=== PATIENT | male | born 1935 | race Caucasian/White ===

== ENCOUNTER → 2017-10-14 09:23 | Outpatient (CLI) | payer OTHER, MEDICARE, SELFPAY ==
[2017-10-14 11:03] LABS: Absolute Lymphocyte Count 1.38 X10^3/ul (0.83-4.51); Absolute Neutrophil Count 3.2 X10^3/uL (2.0-7.7); Basophil# 0.02 X10^3/uL; Basophil% 0.4 % (0-1); Eosinophil# 0.11 X10^3/uL; Hemoglobin 16.1 g/dl (13.0-16.5); Lymphocyte # 1.38 X10^3/ul (4.0); Lymphocyte % 25.7 % (19-41); Mean Corp Hgb Conc 32.2 g/gl (32-36); Mean Corpuscular Hgb 31.1 pg (27.0-32.0); Mean Corpuscular Volume 96.7 fL (80-94); Mean Platelet Vol. 10.6 fl (6.2-12.0); Monocyte# 0.62 X10^3/uL; Monocyte% 11.5 % (0-10); Neutrophil # 3.21 X10^3/uL (2.7-7.7); Neutrophil % 59.8 % (47-70); Platelet Count 190 K/mm3 (150-450); RBC Distribution Width CV 12.9 % (11.6-14.6); RBC Distribution Width SD 46.2 fl (35.1-43.9); Red Blood Count 5.17 M/mm3 (4.6-6.2); White Blood Count 5.4 K/mm3 (4.4-11.0)
[2017-10-14 11:08] LABS: POSITIVE COUNT NO; POSITIVE DIFFERENTIAL NO; POSITIVE MORPHOLOGY NO
[2017-10-14 11:44] LABS: AST(SGOT) 19 U/L (15-37); Alanine Aminotransfer ALT/SGPT 22 U/L (16-61); Albumin, Serum 3.5 g/dL (3.2-5.0); Alkaline Phosphatase 107 U/L (45-117); Anion Gap 8 (5-15); BUN 18 mg/dL (7-18); BUN/Creat Ratio 12.9 RATIO (10-20); Calcium,Total 8.3 mg/dL (8.5-10.1); Chloride 109 mmol/L (98-107); EST Glomerular Filtration Rate 52 mL/min (>60); Est Glom Filt Rate - Afr Amer 63 mL/min (>60); Globulin 3.6 g/dL (2.2-4.2); Glucose 109 mg/dL (74-106); Potassium 4.3 mmol/L (3.5-5.1); Protein, Total 7.1 g/dL (6.4-8.2); Sodium Level 140 mmol/L (136-145); Thyroid Stim Hormone (TSH) 2.44 uIU/mL (0.358-3.74)
== END ==
PROVIDERS: Family Provider Family Medicine Geriatric Medicine; PCP Family Medicine Geriatric Medicine; Visit Provider Family Medicine Geriatric Medicine
DX: R53.83 Other fatigue (principal); E55.9 Vitamin D deficiency, unspecified
CPT/HCPCS: 36415; 80053; 82306; 84443; 85025

== ENCOUNTER → 2017-10-15 16:15 | Outpatient (CLI) | payer OTHER, MEDICARE, SELFPAY ==
--- NOTE | 2017-10-15 10:22 | TISS_PTH ---
PATIENT: NOAH TERRY LOC: [facility] U#:[id number] AGE/SX: 89/M ROOM: RE10/15/[address]: Dr. Jame Hebert MD : 1935 BED: DIS: SPEC #: [id number] RECD: 10/15/17 18:26 STATUS: PHILLIP YASEMIN #: [id number] ARACELI: 10/15/17 10:[address]: Jame Hebert Chi DEPT: SURGICAL PATHOLOGY RECD BY: Danni Hahn Tissues: Skin of face, NOS Procedures: Special Stain Group I Surgery Specimen Level IV GMS Stain (control) HEADER OPERATION: Not noted PRE-OP DIAGNOSIS: L98.9 TISSUE SUBMITTED: Left cheek MICROSCOPIC DIAGNOSIS Left cheek lesion, excisional biopsy: Basal cell carcinoma, completely excised in the planes of sections examined. Solar elastosis. Special stain for fungi is negative for organisms; matched control is appropriate. SJ:jarad 10/17/17 MICROSCOPIC DESCRIPTION Slides are reviewed. GROSS DESCRIPTION Received is one container labeled with the patient's name and not further designated. The specimen consists of a light michaels shaved skin fragment measuring 1.3 x 1 x 0.3 cm. The specimen is inked, serially sectioned and totally submitted in one cassette. / AM:jarad 10/16/17 TC:0 CPT: 82507, 15848
== END ==
PROVIDERS: Family Provider Family Medicine Geriatric Medicine; PCP Family Medicine Geriatric Medicine; Visit Provider Family Medicine Geriatric Medicine
DX: L98.9 Disorder of the skin and subcutaneous tissue, unspecified (principal)
CPT/HCPCS: 88305; 88312

== ENCOUNTER → 2018-04-16 10:25 | Outpatient (CLI) | payer MEDICARE, OTHER, SELFPAY ==
[2018-04-16 13:12] LABS: Absolute Lymphocyte Count 1.34 X10^3/ul (0.83-4.51); Absolute Neutrophil Count 3.6 X10^3/uL (2.0-7.7); Basophil# 0.03 X10^3/uL; Basophil% 0.5 % (0-1); Eosinophil# 0.14 X10^3/uL; Eosinophils% 2.5 % (0-5); Hematocrit 49.9 % (40-54); Lymphocyte # 1.34 X10^3/ul (4.0); Lymphocyte % 23.8 % (19-41); Mean Corp Hgb Conc 32.1 g/gl (32-36); Mean Corpuscular Volume 96.7 fL (80-94); Mean Platelet Vol. 10.4 fl (6.2-12.0); Monocyte% 8.9 % (0-10); Neutrophil # 3.59 X10^3/uL (2.7-7.7); Neutrophil % 63.6 % (47-70); Platelet Count 208 K/mm3 (150-450); RBC Distribution Width CV 13.5 % (11.6-14.6); RBC Distribution Width SD 48.2 fl (35.1-43.9); Red Blood Count 5.16 M/mm3 (4.6-6.2); White Blood Count 5.6 K/mm3 (4.4-11.0)
[2018-04-16 13:14] LABS: Vitamin D,25 Hydroxy 17.6 ng/mL (29.95-100.01)
[2018-04-16 13:22] LABS: ALB/GLOB Ratio 0.9 RATIO (0.9-2.4); AST(SGOT) 19 U/L (15-37); Alanine Aminotransfer ALT/SGPT 27 U/L (16-61); Albumin, Serum 3.5 g/dL (3.2-5.0); Alkaline Phosphatase 82 U/L (45-117); Anion Gap 11 (5-15); BUN 20 mg/dL (7-18); BUN/Creat Ratio 12.3 RATIO (10-20); Calcium,Total 8.8 mg/dL (8.5-10.1); Chloride 106 mmol/L (98-107); Creatinine, Serum 1.62 mg/dL (0.70-1.30); EST Glomerular Filtration Rate 44 mL/min (>60); Est Glom Filt Rate - Afr Amer 53 mL/min (>60); Globulin 3.9 g/dL (2.2-4.2); Glucose 146 mg/dL (74-106); Potassium 4.1 mmol/L (3.5-5.1); Protein, Total 7.4 g/dL (6.4-8.2); Sodium Level 139 mmol/L (136-145); Thyroid Stim Hormone (TSH) 2.31 uIU/mL (0.358-3.74)
[2018-04-16 13:27] LABS: POSITIVE COUNT NO; POSITIVE DIFFERENTIAL NO; POSITIVE MORPHOLOGY NO
== END ==
PROVIDERS: Family Provider Family Medicine Geriatric Medicine; PCP Family Medicine Geriatric Medicine; Visit Provider Family Medicine Geriatric Medicine
DX: E55.9 Vitamin D deficiency, unspecified (principal); R53.83 Other fatigue
CPT/HCPCS: 36415; 80053; 82306; 84443; 85025

== ENCOUNTER → 2018-07-25 08:46 | Outpatient (CLI) | payer MEDICARE, OTHER, SELFPAY ==
[2018-07-15 10:10] VITALS: BMI 29.5
--- NOTE | 2018-07-25 08:51 | ECHOD_ITS ---
Reason For Study: Arrhythmia Procedure This was a 2D Doppler, Color Flow transthoracic echocardiogram. Exam performed in department. Left Ventricle Normal LV size. Left ventricular systolic function is normal. The estimated ejection fraction is 65 %. Stage 1 diastolic dysfunction. No regional wall motion abnormalities noted. Right Ventricle Normal RV size. Normal systolic function. Atria Normal left atrium. Normal right atrium. Mitral Valve Normal mitral valve. Tricuspid Valve Normal tricuspid valve. Aortic Valve Trisinus/trileaflet aortic valve. Mild diffuse aortic valve thickening. Mild aortic stenosis. Mild (1+) eccentric aortic valve insufficiency. Pulmonic Valve Normal pulmonic valve. Great Vessels Moderately dilated ascending aorta. The pulmonary artery is normal size. Normal inferior vena cava. Pericardium/Pleural No pericardial effusion. MMode/2D Measurements & Calculations LVIDd: 3.8 cm IVSd: 1.5 cm LVOT diam: 2.0 cm LVIDs: 2.7 cm LVPWd: 1.2 cm LVOT area: 3.2 cm2 RVDd: 3.3 cm FS: 29.2 % Ao root diam: 4.7 cm LAV(MOD-bp): 38.5 ml LVAd ap4: 24.8 cm2 LAV(MOD-bp) Indexed: 18.9 ml/m2 EDV(MOD-sp4): 66.9 ml LAV(MOD-sp2): 37.4 ml EDV(sp4-el): 68.4 ml LAV(MOD-sp4): 39.8 ml LVAs ap4: 14.2 cm2 ESV(MOD-sp4): 28.2 ml ESV(sp4-el): 27.8 ml EF(MOD-sp4): 57.9 % EF(sp4-el): 59.4 % SV(MOD-sp4): 38.7 ml SV(sp4-el): 40.7 ml LA A4 area: 16.9 cm2 LA dimension(2D): 3.6 cm RA A4 area: 12.6 cm2 Doppler Measurements & Calculations MV E max justen: 66.4 cm/sec Lat Peak E' Justen: 7.2 cm/sec Med Peak E' Justen: 4.2 cm/sec MV A max justen: 98.9 cm/sec E/E' lat: 9.2 E/E' med: 15.8 MV E/A: 0.67 Ao V2 max: 229.0 cm/sec AI max justen: 491.1 cm/sec LV V1 max: 117.0 cm/sec Ao max P.0 mmHg AI max P.5 mmHg LV V1 max P.5 mmHg Ao V2 mean: 157.9 cm/sec LV V1 mean P.2 mmHg Ao mean P.2 mmHg AI dec slope: 255.3 cm/sec2 LV V1 mean: 85.8 cm/sec Ao V2 VTI: 43.9 cm AI P1/2t: 563.4 msec LV V1 VTI: 21.7 cm KATIUSKA(I,D): 1.6 cm2 KATIUSKA(V,D): 1.6 cm2 SV(LVOT): 68.9 ml PA V2 max: 104.2 cm/sec Interpretation Summary Normal LV size. Left ventricular systolic function is normal. The estimated ejection fraction is 65 %. Stage 1 diastolic dysfunction. Moderately dilated ascending aorta. Mild aortic stenosis. Ordering Physician: Juan Carlos Duval Referring Physician: Jame Hebert Chi Performed By: Marjorie Choudhary, ELYSSA, RVT
== END ==
PROVIDERS: Family Provider Family Medicine Geriatric Medicine; PCP Family Medicine Geriatric Medicine; Referring Provider Internal Medicine Cardiovascular Disease; Visit Provider Internal Medicine Cardiovascular Disease
DX: I47.1 Supraventricular tachycardia (principal)
CPT/HCPCS: 93306

== ENCOUNTER → 2018-08-15 08:03 | Outpatient (CLI) | payer MEDICARE, OTHER, SELFPAY ==
[2018-07-15 10:10] VITALS: BMI 29.5
--- NOTE | 2018-08-15 08:06 | CT_ITS ---
STUDY: CT CHEST WITH CONTRAST REASON FOR EXAM: Male, 83 years old. Dilated ascending thoracic aorta RADIATION DOSAGE (If Supplied By Facility): CTDIvol = ( 14.95 ) mGy, DLP = ( 649.71 ) mGycm TECHNIQUE: Transaxial imaging was performed following intravenous administration of 75ML ml of Isovue 300 contrast material. Individualized dose optimization techniques were used for this CT. COMPARISON: None. FINDINGS: Scattered subpleural reticulation and bilateral lower lobes and in the right upper lobe. No airspace consolidation. Reticulonodular opacity along the fissure (image 52) is felt to be fibrotic in nature. No suspicious pulmonary nodules. There is no demonstrated pleural abnormality. Normal heart and pericardium. There are calcifications of the coronary arteries. There are multiple small lymph nodes within the mediastinum, which are normal in size and morphology most compatible with reactive lymph hyperplasia. Normal hilar regions. Normal enhanced pulmonary arteries. Aneurysmal dilation of the ascending thoracic aorta measures 4.7 x 4.7 cm at the level of the pulmonary artery. No thoracic aortic dissection or periaortic fluid. Tortuosity of the origins of the brachiocephalic arteries but no significant stenosis detected. There is also tortuosity of the descending thoracic aorta remains normal in caliber. There are multi-level degenerative changes of the thoracic spine. There is a moderate-sized hiatal hernia. Simple right renal cyst measures 2.[address]/Chest WITH Contrast IMPRESSION: 1. Ascending thoracic aortic aneurysm measuring 4.7 cm. No thoracic aortic dissection. 2. Mild fibrotic changes of the lungs. Electronically Signed: Reji Stark MD at 7:12 EST , Service support ,
[2018-08-15 08:16] LABS: CREATININE FINGERSTICK 1.8 mg/dL (0.70-1.30)
== END ==
PROVIDERS: Family Provider Family Medicine Geriatric Medicine; PCP Family Medicine Geriatric Medicine; Referring Provider Internal Medicine Cardiovascular Disease; Visit Provider Internal Medicine Cardiovascular Disease
DX: I77.810 Thoracic aortic ectasia (principal); I47.1 Supraventricular tachycardia
CPT/HCPCS: 71260; Q9967

== ENCOUNTER → 2018-10-15 13:16 | Outpatient (CLI) | payer MEDICARE, OTHER, SELFPAY ==
[2018-07-15 10:10] VITALS: BMI 29.5
[2018-10-15 15:04] LABS: Absolute Lymphocyte Count 1.28 X10^3/ul (0.83-4.51); Absolute Neutrophil Count 3.6 X10^3/uL (2.0-7.7); Basophil# 0.03 X10^3/uL; Basophil% 0.6 % (0-1); Eosinophil# 0.09 X10^3/uL; Eosinophils% 1.7 % (0-5); Hematocrit 53.2 % (40-54); Hemoglobin 16.7 g/dl (13.0-16.5); Lymphocyte # 1.28 X10^3/ul (4.0); Lymphocyte % 23.6 % (19-41); Mean Corp Hgb Conc 31.4 g/gl (32-36); Mean Corpuscular Hgb 30.7 pg (27.0-32.0); Mean Corpuscular Volume 97.8 fL (80-94); Monocyte# 0.43 X10^3/uL; Monocyte% 7.9 % (0-10); Neutrophil # 3.57 X10^3/uL (2.7-7.7); Neutrophil % 65.6 % (47-70); Platelet Count 193 K/mm3 (150-450); RBC Distribution Width CV 13.5 % (11.6-14.6); RBC Distribution Width SD 48.7 fl (35.1-43.9); Red Blood Count 5.44 M/mm3 (4.6-6.2); White Blood Count 5.4 K/mm3 (4.4-11.0)
[2018-10-15 15:12] LABS: POSITIVE COUNT NO; POSITIVE DIFFERENTIAL NO; POSITIVE MORPHOLOGY NO
[2018-10-15 15:17] LABS: Vitamin D,25 Hydroxy 50.9 ng/mL (29.95-100.01)
[2018-10-15 15:21] LABS: ALB/GLOB Ratio 0.9 RATIO (0.9-2.4); AST(SGOT) 20 U/L (15-37); Alanine Aminotransfer ALT/SGPT 26 U/L (16-61); Albumin, Serum 3.7 g/dL (3.2-5.0); Alkaline Phosphatase 88 U/L (45-117); Anion Gap 10 (5-15); BUN 21 mg/dL (7-18); BUN/Creat Ratio 14.7 RATIO (10-20); Calcium,Total 8.6 mg/dL (8.5-10.1); Chloride 108 mmol/L (98-107); Creatinine, Serum 1.43 mg/dL (0.70-1.30); EST Glomerular Filtration Rate 50 mL/min (>60); Est Glom Filt Rate - Afr Amer 61 mL/min (>60); Globulin 3.9 g/dL (2.2-4.2); Glucose 142 mg/dL (74-106); Potassium 4.5 mmol/L (3.5-5.1); Protein, Total 7.6 g/dL (6.4-8.2); Sodium Level 140 mmol/L (136-145)
== END ==
PROVIDERS: Family Provider Family Medicine Geriatric Medicine; PCP Family Medicine Geriatric Medicine; Visit Provider Family Medicine Geriatric Medicine
DX: E55.9 Vitamin D deficiency, unspecified (principal); R53.83 Other fatigue
CPT/HCPCS: 36415; 80053; 82306; 84443; 85025

== ENCOUNTER → 2019-02-23 | Outpatient (CLI) | payer MEDICARE, OTHER, SELFPAY ==
[2018-07-15 10:10] VITALS: BMI 29.5
--- NOTE | 2019-02-23 12:50 | CT_ITS ---
STUDY: CT CHEST WITH CONTRAST REASON FOR EXAM: Male, 83 years old. Follow-up study RADIATION DOSAGE (If Supplied By Facility): CTDIvol = ( 11.53 ) mGy, DLP = ( 773.73 ) mGycm TECHNIQUE: Transaxial imaging was performed following intravenous administration of 100 IV Isovue 300. Multiplanar coronal and sagittal images were reformatted. Individualized dose optimization techniques were used for this CT. COMPARISON: August 15, 2018 CT scan chest FINDINGS: There is scarring in the bilateral lung apices. There is increased AP diameter of the chest. There is no visualized focal consolidation or pleural effusion. There is no demonstrated pleural abnormality. There is mild cardiac enlargement there are coronary artery calcifications. There are numerous borderline pathologic lymph nodes demonstrated within the mediastinum measuring up to 1.1 and 1.4 cm. There is partial calcification of one of the lymph nodes. There are lymph nodes in the prevascular space precarinal space and in the bilateral barry. Normal enhanced pulmonary arteries. The aorta is tortuous and partially calcified. The ascending thoracic aorta measures 4.9 x 4.6 cm there is no evidence of dissection. It tapers towards the mid arch. The descending thoracic aorta measures 3.0 x 3.2 cm. At the hiatus it measures 2.7 cm. There are multi-level degenerative changes of the thoracic spine. There is a hiatal hernia measuring 8.9 x 6.7 x 9.7 cm. The liver is fatty infiltrated. There is a well-circumscribed benign-appearing cyst in the right kidney measuring 2.5 x 2.6 cm with Hounsfield units in the range of simple fluid. There is a mildly inhomogeneous appearance of the tail and body of the pancreas. The tail and body of the pancreas appears thicker than prior study. In addition there is a rim of possible edema. CT/Chest WITH Contrast IMPRESSION: 4.9 x 4.6 cm stable thoracic aortic aneurysm. Multiple age indeterminant borderline appearing lymph nodes in the mediastinum consider reactive versus metastatic versus possible but less likely sarcoid. Moderate hiatal hernia There is a mildly inhomogeneous possibly edematous appearance of the tail and body of the pancreas which could potentially represent pancreatic edema consistent with pancreatitis. Appropriate follow-up imaging and laboratory values is suggested. These findings were called to the ordering physician on a stat basis Dr. Duval 639 pm est 02/23/19 . Benign-appearing right renal cyst Constipation. Bilateral apical scarring. N.B. : The above information has been verbally conveyed by Radha Ann MD to Roberts MD, on 02/23/2019 18:40:44 (ET). Electronically Signed: Radha Ann MD at 18:41 EDT Tel , Service support ,
[2019-02-23 13:05] LABS: CREATININE FINGERSTICK 1.4 mg/dL (0.70-1.30)
== END | disposition home or self-care (01) ==
LOC: CT 12:49
PROVIDERS: Family Provider Family Medicine Geriatric Medicine; PCP Family Medicine Geriatric Medicine; Referring Provider Internal Medicine Cardiovascular Disease; Visit Provider Internal Medicine Cardiovascular Disease
DX: I71.2 Thoracic aortic aneurysm, without rupture (principal); I47.1 Supraventricular tachycardia
CPT/HCPCS: 71260; Q9967

== ENCOUNTER → 2019-02-26 | Outpatient (CLI) | payer MEDICARE, OTHER, SELFPAY ==
[2018-07-15 10:10] VITALS: BMI 29.5
[2019-02-26 10:25] LABS: AST(SGOT) 18 U/L (15-37); Alanine Aminotransfer ALT/SGPT 22 U/L (16-61); Albumin, Serum 3.3 g/dL (3.2-5.0); Alkaline Phosphatase 91 U/L (45-117); Amylase 73 U/L (25-115); Bilirubin, Direct 0.18 mg/dL (0.00-0.30); Globulin 4.2 g/dL (2.2-4.2); Lipase 413 U/L (73-393); Protein, Total 7.5 g/dL (6.4-8.2)
== END | disposition home or self-care (01) ==
LOC: LAB 08:35
PROVIDERS: Family Provider Family Medicine Geriatric Medicine; PCP Family Medicine Geriatric Medicine; Referring Provider Internal Medicine Cardiovascular Disease; Visit Provider Internal Medicine Cardiovascular Disease
DX: I71.2 Thoracic aortic aneurysm, without rupture (principal); I47.1 Supraventricular tachycardia
CPT/HCPCS: 36415; 80076; 82150; 83690

== ENCOUNTER → 2019-04-27 09:10 | Outpatient (CLI) | payer MEDICARE, OTHER, SELFPAY ==
[2018-07-15 10:10] VITALS: BMI 29.5
[2019-04-27 12:31] LABS: Absolute Lymphocyte Count 1.24 X10^3/uL (0.83-4.51); Absolute Neutrophil Count 3.4 X10^3/uL (2.0-7.7); Basophil# 0.03 X10^3/uL; Basophil% 0.6 % (0-1); Eosinophil# 0.07 X10^3/uL; Eosinophils% 1.4 % (0-5); Hematocrit 49.4 % (40-54); Hemoglobin 16.4 g/dL (13.0-16.5); Lymphocyte # 1.24 X10^3/ul (4.0); Mean Corp Hgb Conc 33.2 g/dL (32-36); Mean Corpuscular Hgb 32.4 pg (27.0-32.0); Mean Corpuscular Volume 97.6 fL (80-94); Mean Platelet Vol. 10.6 fl (6.2-12.0); Monocyte# 0.37 X10^3/uL; Monocyte% 7.2 % (0-10); NRBC Flagged by Analyzer 0 % (0-5); Neutrophil % 65.8 % (47-70); Platelet Count 150 K/mm3 (150-450); RBC Distribution Width CV 12.6 % (11.6-14.6); RBC Distribution Width SD 45.4 fl (35.1-43.9); Red Blood Count 5.06 M/mm3 (4.6-6.2); White Blood Count 5.2 K/mm3 (4.4-11.0)
[2019-04-27 12:47] LABS: Vitamin D,25 Hydroxy 35.3 ng/mL (29.95-100.01)
[2019-04-27 12:58] LABS: ALB/GLOB Ratio 0.8 RATIO (0.9-2.4); AST(SGOT) 19 U/L (15-37); Alanine Aminotransfer ALT/SGPT 25 U/L (16-61); Albumin, Serum 3.3 g/dL (3.2-5.0); Alkaline Phosphatase 81 U/L (45-117); Anion Gap 9 (5-15); BUN 18 mg/dL (7-18); BUN/Creat Ratio 13.1 RATIO (10-20); Calcium,Total 8.4 mg/dL (8.5-10.1); Chloride 110 mmol/L (98-107); Creatinine, Serum 1.37 mg/dL (0.70-1.30); EST Glomerular Filtration Rate 53 mL/min (>60); Est Glom Filt Rate - Afr Amer 64 mL/min (>60); Globulin 4.1 g/dL (2.2-4.2); Glucose 167 mg/dL (74-106); Potassium 4.2 mmol/L (3.5-5.1); Protein, Total 7.4 g/dL (6.4-8.2); Sodium Level 141 mmol/L (136-145); Thyroid Stim Hormone (TSH) 3.41 uIU/mL (0.358-3.74)
== END ==
PROVIDERS: Family Provider Family Medicine Geriatric Medicine; PCP Family Medicine Geriatric Medicine; Visit Provider Family Medicine Geriatric Medicine
DX: E55.9 Vitamin D deficiency, unspecified (principal); R53.83 Other fatigue
CPT/HCPCS: 36415; 80053; 82306; 84443; 85025

== ENCOUNTER → 2019-10-19 10:19 | Outpatient (CLI) | payer MEDICARE, OTHER, SELFPAY ==
[2019-07-21 07:15] VITALS: BMI 28.5
[2019-10-19 12:21] LABS: Absolute Lymphocyte Count 1.27 X10^3/uL (0.83-4.51); Absolute Neutrophil Count 3.3 X10^3/uL (2.0-7.7); Basophil# 0.04 X10^3/uL; Basophil% 0.8 % (0-1); Eosinophils% 1.9 % (0-5); Hematocrit 49.5 % (40-54); Hemoglobin 16.2 g/dL (13.0-16.5); Lymphocyte # 1.27 X10^3/ul (4.0); Lymphocyte % 24.1 % (19-41); Mean Corp Hgb Conc 32.7 g/dL (32-36); Mean Corpuscular Hgb 31.7 pg (27.0-32.0); Mean Corpuscular Volume 96.9 fL (80-94); Mean Platelet Vol. 10.8 fl (6.2-12.0); Monocyte# 0.52 X10^3/uL; Monocyte% 9.9 % (0-10); NRBC Flagged by Analyzer 0 % (0-5); Neutrophil % 62.7 % (47-70); Platelet Count 190 K/mm3 (150-450); RBC Distribution Width CV 12.4 % (11.6-14.6); RBC Distribution Width SD 44.7 fl (35.1-43.9); Red Blood Count 5.11 M/mm3 (4.6-6.2); White Blood Count 5.3 K/mm3 (4.4-11.0)
[2019-10-19 12:36] LABS: Vitamin D,25 Hydroxy 39.8 ng/mL
[2019-10-19 12:41] LABS: ALB/GLOB Ratio 0.9 RATIO (0.9-2.4); AST(SGOT) 22 U/L (15-37); Alanine Aminotransfer ALT/SGPT 27 U/L (16-61); Albumin, Serum 3.7 g/dL (3.2-5.0); Alkaline Phosphatase 88 U/L (45-117); Anion Gap 7 (5-15); BUN 21 mg/dL (7-18); Calcium,Total 8.8 mg/dL (8.5-10.1); Chloride 106 mmol/L (98-107); EST Glomerular Filtration Rate 48 mL/min (>60); Est Glom Filt Rate - Afr Amer 58 mL/min (>60); Globulin 4.1 g/dL (2.2-4.2); Glucose 159 mg/dL (74-106); Potassium 4.2 mmol/L (3.5-5.1); Protein, Total 7.8 g/dL (6.4-8.2); Sodium Level 138 mmol/L (136-145); Thyroid Stim Hormone (TSH) 3.58 uIU/mL (0.358-3.74)
== END ==
PROVIDERS: PCP Family Medicine Geriatric Medicine; Visit Provider Family Medicine Geriatric Medicine
DX: R53.83 Other fatigue (principal); E55.9 Vitamin D deficiency, unspecified
CPT/HCPCS: 36415; 80053; 82306; 84443; 85025

== ENCOUNTER → 2020-03-28 13:03 | Outpatient (CLI) | payer MEDICARE, OTHER, SELFPAY ==
[2019-07-21 07:15] VITALS: BMI 28.5
--- NOTE | 2020-03-28 13:08 | VDLE_ITS ---
Reason For Study: Edema RIGHT GSV is normal. CFV is compressible, spontaneous, phasic, competent and demonstrates normal augmentation. FV is compressible, spontaneous, phasic, competent and demonstrates normal augmentation. POP V is compressible, spontaneous, phasic, competent and demonstrates normal augmentation. T/P Trunk is compressible. PTV is compressible. RT PerV is compressible. Large nonvascularized structure noted throughout the calf muscle from prox-mid calf. Procedure Exam performed in department. A preliminary report was called and/or faxed to Anup. Interpretation Summary Deep veins of the right lower extremity are patent and compressible segmentally. There is no evidence of right lower extremity deep vein thrombosis. Valvular competence appears intact within the proximal deep venous system on the right . The right great saphenous vein appears patent and compressible segmentally. A large, non-vascular structure is noted throughout the musculature of the right proximal to mid-calf. This may represent a hematoma or seroma. Clinical correlation is advised. Ordering Physician: Jame Hebert Referring Physician: Jame Hebert Chi Performed By: Maribel Warren RVT and Student
== END ==
PROVIDERS: PCP Family Medicine Geriatric Medicine; Referring Provider Family Medicine Geriatric Medicine; Visit Provider Family Medicine Geriatric Medicine
DX: R60.0 Localized edema (principal)
CPT/HCPCS: 93971

== ENCOUNTER → 2020-05-02 11:59 | Outpatient (CLI) | payer MEDICARE, OTHER, SELFPAY ==
[2019-07-21 07:15] VITALS: BMI 28.5
[2020-05-02 12:40] LABS: Absolute Lymphocyte Count 1.13 X10^3/uL (0.83-4.51); Absolute Neutrophil Count 3.6 X10^3/uL (2.0-7.7); Basophil# 0.04 X10^3/uL; Basophil% 0.7 % (0-1); Eosinophil# 0.08 X10^3/uL; Eosinophils% 1.5 % (0-5); Hematocrit 48.7 % (40-54); Lymphocyte # 1.13 X10^3/ul (4.0); Lymphocyte % 20.7 % (19-41); Mean Corp Hgb Conc 32.9 g/dL (32-36); Mean Corpuscular Hgb 32.5 pg (27.0-32.0); Mean Corpuscular Volume 98.8 fL (80-94); Mean Platelet Vol. 10.6 fl (6.2-12.0); Monocyte# 0.53 X10^3/uL; Monocyte% 9.7 % (0-10); NRBC Flagged by Analyzer 0 % (0-5); Neutrophil # 3.62 X10^3/uL (2.7-7.7); Neutrophil % 66.5 % (47-70); Platelet Count 211 K/mm3 (150-450); RBC Distribution Width CV 12.3 % (11.6-14.6); RBC Distribution Width SD 44.8 fl (35.1-43.9); Red Blood Count 4.93 M/mm3 (4.6-6.2); White Blood Count 5.5 K/mm3 (4.4-11.0)
[2020-05-02 12:54] LABS: Vitamin D,25 Hydroxy 29.8 ng/mL
[2020-05-02 13:05] LABS: ALB/GLOB Ratio 0.9 RATIO (0.9-2.4); AST(SGOT) 22 U/L (15-37); Alanine Aminotransfer ALT/SGPT 28 U/L (16-61); Albumin, Serum 3.5 g/dL (3.2-5.0); Alkaline Phosphatase 85 U/L (45-117); Anion Gap 5 (5-15); BUN 17 mg/dL (7-18); BUN/Creat Ratio 11.8 RATIO (10-20); Calcium,Total 8.7 mg/dL (8.5-10.1); Chloride 107 mmol/L (98-107); Creatinine, Serum 1.44 mg/dL (0.70-1.30); EST Glomerular Filtration Rate 50 mL/min (>60); Est Glom Filt Rate - Afr Amer 60 mL/min (>60); Glucose 143 mg/dL (74-106); Protein, Total 7.5 g/dL (6.4-8.2); Sodium Level 139 mmol/L (136-145); Thyroid Stim Hormone (TSH) 3.63 uIU/mL (0.358-3.74)
== END ==
PROVIDERS: PCP Family Medicine Geriatric Medicine; Visit Provider Family Medicine Geriatric Medicine
DX: R53.83 Other fatigue (principal); E55.9 Vitamin D deficiency, unspecified
CPT/HCPCS: 36415; 80053; 82306; 84443; 85025

== ENCOUNTER → 2020-07-18 09:49 | Outpatient (CLI) | payer MEDICARE, OTHER, SELFPAY ==
[2019-07-21 07:15] VITALS: BMI 28.5
--- NOTE | 2020-07-18 09:50 | ECHOD_ITS ---
Reason For Study: Bicuspid AV/ AA Procedure This was a 2D Doppler, Color Flow transthoracic echocardiogram. The study was technically difficult. Exam performed in department. Left Ventricle Normal LV size. Mild concentric left ventricular hypertrophy. Left ventricular systolic function is normal. The estimated ejection fraction is 65 %. Stage 1 diastolic dysfunction. No regional wall motion abnormalities noted. Right Ventricle Normal RV size. Normal systolic function. Tricuspid Valve Normal tricuspid valve. Mild tricuspid valve insufficiency. Pulmonary artery systolic pressure is 24 mmHg. Aortic Valve Trisinus/trileaflet aortic valve. Peak aortic valve gradient 17 mmHg. Mean aortic valve gradient 10 mmHg. Mild (1+) aortic valve insufficiency. Great Vessels Moderately dilated aortic root. The pulmonary artery is normal size. Normal inferior vena cava. Pericardium/Pleural No pericardial effusion. MMode/2D Measurements & Calculations LVIDd: 3.9 cm IVSd: 1.2 cm LVOT diam: 2.0 cm LVIDs: 2.6 cm LVPWd: 1.2 cm RVDd: 2.8 cm FS: 34.2 % LVOT area: 3.1 cm2 Ao root diam: 4.8 cm LAV(MOD-bp): 25.8 ml LVAd ap4: 25.2 cm2 LAV(MOD-bp) Indexed: 12.8 ml/m2 EDV(MOD-sp4): 68.2 ml LAV(MOD-sp2): 23.0 ml EDV(sp4-el): 71.4 ml LAV(MOD-sp4): 30.0 ml LVAs ap4: 13.3 cm2 ESV(MOD-sp4): 24.4 ml ESV(sp4-el): 24.7 ml EF(MOD-sp4): 64.2 % EF(sp4-el): 65.4 % SV(MOD-sp4): 43.8 ml SV(sp4-el): 46.7 ml LA A4 area: 14.3 cm2 LA dimension(2D): 2.2 cm RA A4 area: 11.1 cm2 Time Measurements MV dec time: 0.21 sec Doppler Measurements & Calculations MV E max justen: 62.0 cm/sec Lat Peak E' Justen: 5.2 cm/sec Med Peak E' Justen: 7.1 cm/sec MV A max justen: 95.9 cm/sec E/E' lat: 11.9 E/E' med: 8.7 MV E/A: 0.65 Ao V2 max: 204.7 cm/sec AI max justen: 499.4 cm/sec LV V1 max: 106.9 cm/sec Ao max P.8 mmHg AI max P.9 mmHg LV V1 max P.6 mmHg Ao V2 mean: 144.2 cm/sec AI dec slope: 293.9 cm/sec2 LV V1 mean P.3 mmHg Ao mean P.1 mmHg AI P1/2t: 497.6 msec LV V1 mean: 72.5 cm/sec Ao V2 VTI: 32.6 cm LV V1 VTI: 19.9 cm KATIUSKA(I,D): 1.9 cm2 KATIUSKA(V,D): 1.6 cm2 SV(LVOT): 61.2 ml TR max justen: 216.5 cm/sec TR max P.7 mmHg Interpretation Summary Normal LV size. Mild concentric left ventricular hypertrophy. Left ventricular systolic function is normal. The estimated ejection fraction is 65 %. Mean aortic valve gradient 10 mmHg. Mild (1+) aortic valve insufficiency. Moderately dilated aortic root. Stage 1 diastolic dysfunction. Trisinus/trileaflet aortic valve. Ordering Physician: Juan Carlos Duval Referring Physician: EDEL PERRY Performed By: Irene Brand, ELYSSA, RVT
== END ==
PROVIDERS: PCP Family Medicine Geriatric Medicine; Referring Provider Internal Medicine Cardiovascular Disease; Visit Provider Internal Medicine Cardiovascular Disease
DX: I47.1 Supraventricular tachycardia (principal); I71.2 Thoracic aortic aneurysm, without rupture; Q23.1 Congenital insufficiency of aortic valve
CPT/HCPCS: 93306

== ENCOUNTER → 2020-11-16 12:03 | Outpatient (CLI) | payer MEDICARE, OTHER, SELFPAY ==
[2020-08-10 08:35] VITALS: BMI 29.0
[2020-11-16 12:32] LABS: Absolute Lymphocyte Count 1.34 X10^3/uL (0.83-4.51); Basophil# 0.06 X10^3/uL; Basophil% 1.2 % (0-1); Eosinophil# 0.13 X10^3/uL; Eosinophils% 2.5 % (0-5); Hematocrit 48.2 % (40-54); Hemoglobin 16.2 g/dL (13.0-16.5); Lymphocyte # 1.34 X10^3/ul (4.0); Lymphocyte % 26.1 % (19-41); Mean Corp Hgb Conc 33.6 g/dL (32-36); Mean Corpuscular Hgb 33.6 pg (27.0-32.0); Mean Platelet Vol. 10.3 fl (6.2-12.0); Monocyte# 0.53 X10^3/uL; Monocyte% 10.3 % (0-10); NRBC Flagged by Analyzer 0 % (0-5); Neutrophil # 3.04 X10^3/uL (2.7-7.7); Neutrophil % 59.3 % (47-70); Platelet Count 176 K/mm3 (150-450); RBC Distribution Width CV 12.9 % (11.6-14.6); RBC Distribution Width SD 47.5 fl (35.1-43.9); Red Blood Count 4.82 M/mm3 (4.6-6.2); White Blood Count 5.1 K/mm3 (4.4-11.0)
[2020-11-16 12:44] LABS: Vitamin D,25 Hydroxy 23.1 ng/mL
[2020-11-16 12:51] LABS: ALB/GLOB Ratio 0.9 RATIO (0.9-2.4); AST(SGOT) 20 U/L (15-37); Alanine Aminotransfer ALT/SGPT 32 U/L (16-61); Albumin, Serum 3.6 g/dL (3.2-5.0); Alkaline Phosphatase 89 U/L (45-117); Anion Gap 3 (5-15); BUN 20 mg/dL (7-18); BUN/Creat Ratio 13.7 RATIO (10-20); Calcium,Total 9.1 mg/dL (8.5-10.1); Chloride 108 mmol/L (98-107); Creatinine, Serum 1.46 mg/dL (0.70-1.30); EST Glomerular Filtration Rate 49 mL/min (>60); Est Glom Filt Rate - Afr Amer 59 mL/min (>60); Glucose 139 mg/dL (74-106); Potassium 4.6 mmol/L (3.5-5.1); Protein, Total 7.6 g/dL (6.4-8.2); Sodium Level 138 mmol/L (136-145)
== END ==
PROVIDERS: PCP Family Medicine Geriatric Medicine; Visit Provider Family Medicine Geriatric Medicine
DX: R53.83 Other fatigue (principal); E55.9 Vitamin D deficiency, unspecified
CPT/HCPCS: 36415; 80053; 82306; 84443; 85025

== ENCOUNTER → 2020-11-22 07:13 | Outpatient (CLI) | payer MEDICARE, OTHER, SELFPAY ==
[2020-08-10 08:35] VITALS: BMI 29.0
--- NOTE | 2020-11-22 07:16 | CT_ITS ---
STUDY: CT BRAIN WITHOUT CONTRAST REASON FOR EXAM: Male, 85 years old. Right arm NUMBNESS RADIATION DOSAGE (If Supplied By Facility): CTDIvol = ( 44.99 ) mGy, DLP = ( 829.85 ) mGycm TECHNIQUE: Transaxial CT imaging of the brain was performed without administration of intravenous contrast material. Individualized dose optimization techniques were used for this CT. COMPARISON: No relevant priors. FINDINGS: Normal soft tissue structures. Normal calvarium. There is mild cerebral atrophy with widening of the extra-axial spaces and ventricular dilatation. Normal white matter tracts of the cerebral hemispheres. Normal basal ganglia and thalami. Normal brainstem. Normal cerebellum. There is no intracranial hemorrhage. There are no findings of an acute ischemic infarction. Atherosclerotic calcification of the cavernous portions of the internal carotid arteries bilaterally. Normal visualized paranasal sinuses. CT/Brain/Head without Contrast IMPRESSION: Chronic involutional changes of the brain. Electronically Signed: Flako Dunaway MD at 14:58 EDT , Service support ,
== END ==
PROVIDERS: PCP Family Medicine Geriatric Medicine; Visit Provider Family Medicine Geriatric Medicine
DX: R20.0 Anesthesia of skin (principal)
CPT/HCPCS: 70450

== ENCOUNTER → 2021-01-16 08:08 | Outpatient (CLI) | payer MEDICARE, OTHER, SELFPAY ==
[2020-08-10 08:35] VITALS: BMI 29.0
--- NOTE | 2021-01-16 09:10 | NEURO ---
NCS and/or EMG Patient Report Ordering Doctor: Jame Hebert Chi DATE OF SERVICE: 01/16/21 Indication: Approximately 4 months of numbness and tinging which travels down the right forearm to the fingers. Symptoms are most pronounced at night while attempting to sleep. No weakness. No neck pain. Evaluate for cervical radiculopathy and/or entrapment neuropathy. Findings: Nerve conduction studies were performed in the right upper extremity. The right median motor study recording the abductor pollicis brevis showed a borderline amplitude, prolonged distal latency and mildly slowed conduction velocity. The right ulnar motor study recording the abductor digiti minimi showed a normal amplitude, normal distal latency and normal conduction velocity. No conduction block or focal slowing was present across the elbow. The right median sensory response recording digit two showed an absent response. The right ulnar sensory response recording digit five showed a normal amplitude, latency and conduction velocity. The right radial sensory response recording over the extensor snuff box showed a normal amplitude, latency and conduction velocity. Right median-ulnar lumbrical / interosseous motor latencies showed a prolonged median latency compared to the ulnar. Needle EMG of the right upper extremity and cervical paraspinal muscles was performed. No active denervation was present in any examined muscle. Motor units were large and long with reduced recruitment in the abductor pollicis brevis, deltoid, biceps, triceps and flexor carpi radialis muscles. The first dorsal interosseous muscle demonstrated normal motor unit morphology, activation and recruitment patterns. No abnormal spontaneous activity was seen in the lower cervical paraspinal muscles. Impression: This is an abnormal and complex study. There is electrophysiologic evidence consistent with: 1. A moderately severe, right median neuropathy across the wrist. The pathophysiology is primarily demyelination with significant secondary axonal sensory loss. These findings are compatible with the clinical diagnosis of carpal tunnel syndrome. 2. A moderate, chronic, right C6-7 radiculopathy. There are no active features to suggest ongoing denervation. Thus, the patient has a double crush, two separate conditions that may result in upper extremity pain and similar sensory symptoms. Clinical correlation is needed in helping to determine the relative contributions of the two to the patients symptoms. Lastly, please note: because of the two co-existent conditions, this study would be theoretically insensitive in detecting an additional superimposed brachial plexopathy. Candido Almonte D.O.
== END ==
PROVIDERS: PCP Family Medicine Geriatric Medicine; Referring Provider Family Medicine Geriatric Medicine; Visit Provider Family Medicine Geriatric Medicine
DX: R20.2 Paresthesia of skin (principal)
CPT/HCPCS: 95886; 95910

== ENCOUNTER → 2021-01-25 10:43 | Outpatient (CLI) | payer MEDICARE, OTHER, SELFPAY ==
[2020-08-10 08:35] VITALS: BMI 29.0
--- NOTE | 2021-01-25 10:47 | RAD_ITS ---
STUDY: X-RAY - CERVICAL SPINE REASON FOR EXAM: Male, 85 years old. CERVICALGIA TECHNIQUE: 3 view(s) of the cervical spine were obtained. COMPARISON: None FINDINGS: Normal C1, C2 and odontoid alignment. Degenerative arthrosis of the C1 odontoid articulation. Negative for odontoid fracture. There is a mild degenerative anterolisthesis of C2 with an increase lordotic curvature of the mid cervical spine. There is normal vertebral body height. There is advanced disc narrowing and spondylitic endplate changes at C3-4 and C4-5 with moderately advanced disc narrowing at C5-6 and C6-7. Mild disc narrowing at C2-3. Hypertrophic degenerative facet arthrosis is present at C2-3 C3-4 and C4-5. Uncovertebral arthrosis is present at most cervical levels. Multilevel spinal stenosis and foraminal narrowing is likely. The soft tissue structures are unremarkable. RAD/Cerv Spine 2 or 3 Views IMPRESSION: Negative for fracture. Mild degenerative anterolisthesis of C2 secondary to facet arthrosis. Exaggerated mid cervical lordosis. Extensive degenerative disc and joint findings as described above most likely results in multilevel spinal stenosis and foraminal narrowing. Electronically Signed: Stormy Galindo MD at 23:28 EDT , Service support ,
== END ==
PROVIDERS: PCP Family Medicine Geriatric Medicine; Referring Provider Family Medicine Geriatric Medicine; Visit Provider Family Medicine Geriatric Medicine
DX: M54.2 Cervicalgia (principal)
CPT/HCPCS: 72040

== ENCOUNTER → 2021-05-08 10:12 | Outpatient (CLI) | payer MEDICARE, OTHER, SELFPAY ==
[2021-05-08 11:46] LABS: Absolute Lymphocyte Count 1.17 X10^3/uL (0.83-4.51); Absolute Neutrophil Count 3.4 X10^3/uL (2.0-7.7); Basophil# 0.04 X10^3/uL; Basophil% 0.8 % (0-1); Eosinophil# 0.08 X10^3/uL; Eosinophils% 1.5 % (0-5); Hematocrit 49.9 % (40-54); Hemoglobin 16.3 g/dL (13.0-16.5); Lymphocyte # 1.17 X10^3/ul (0.83-4.51); Lymphocyte % 22.5 % (19-41); Mean Corp Hgb Conc 32.7 g/dL (32-36); Mean Corpuscular Hgb 32.2 pg (27.0-32.0); Mean Corpuscular Volume 98.6 fL (80-94); Mean Platelet Vol. 10.3 fl (6.2-12.0); Monocyte# 0.49 X10^3/uL; Monocyte% 9.4 % (0-10); NRBC Flagged by Analyzer 0 % (0-5); Neutrophil # 3.37 X10^3/uL (2.7-7.7); Neutrophil % 64.6 % (47-70); Platelet Count 216 K/mm3 (150-450); RBC Distribution Width CV 12.4 % (11.6-14.6); RBC Distribution Width SD 44.7 fl (35.1-43.9); Red Blood Count 5.06 M/mm3 (4.6-6.2); White Blood Count 5.2 K/mm3 (4.4-11.0)
[2021-05-08 12:05] LABS: Vitamin D,25 Hydroxy 25.1 ng/mL
[2021-05-08 12:16] LABS: ALB/GLOB Ratio 0.8 RATIO (0.9-2.4); AST(SGOT) 25 U/L (15-37); Alanine Aminotransfer ALT/SGPT 31 U/L (16-61); Albumin, Serum 3.4 g/dL (3.2-5.0); Alkaline Phosphatase 95 U/L (45-117); Anion Gap 7 (5-15); BUN 22 mg/dL (7-18); BUN/Creat Ratio 13.8 RATIO (10-20); Calcium,Total 8.8 mg/dL (8.5-10.1); Chloride 105 mmol/L (98-107); Creatinine, Serum 1.59 mg/dL (0.70-1.30); EST Glomerular Filtration Rate 44 mL/min (>60); Est Glom Filt Rate - Afr Amer 54 mL/min (>60); Globulin 4.4 g/dL (2.2-4.2); Glucose 142 mg/dL (74-106); Potassium 4.7 mmol/L (3.5-5.1); Protein, Total 7.8 g/dL (6.4-8.2); Sodium Level 138 mmol/L (136-145); Thyroid Stim Hormone (TSH) 3.25 uIU/mL (0.358-3.74)
== END ==
PROVIDERS: PCP Family Medicine Geriatric Medicine; Visit Provider Family Medicine Geriatric Medicine
DX: R53.83 Other fatigue (principal); E55.9 Vitamin D deficiency, unspecified
CPT/HCPCS: 36415; 80053; 82306; 84443; 85025

== ENCOUNTER 2021-11-20 10:10 | Outpatient (CLI) | payer MEDICARE, OTHER, SELFPAY ==
[2021-11-20 12:23] LABS: Absolute Lymphocyte Count 1.31 X10^3/uL (0.83-4.51); Basophil# 0.04 X10^3/uL; Basophil% 0.8 % (0-1); Eosinophil# 0.11 X10^3/uL; Eosinophils% 2.2 % (0-5); Hemoglobin 15.7 g/dL (13.0-16.5); Lymphocyte # 1.31 X10^3/ul (0.83-4.51); Lymphocyte % 26.3 % (19-41); Mean Corp Hgb Conc 33.4 g/dL (32-36); Mean Corpuscular Hgb 32.2 pg (27.0-32.0); Mean Corpuscular Volume 96.3 fL (80-94); Mean Platelet Vol. 10.5 fl (6.2-12.0); Monocyte# 0.47 X10^3/uL; Monocyte% 9.4 % (0-10); NRBC Flagged by Analyzer 0 % (0-5); Neutrophil # 3.01 X10^3/uL (2.7-7.7); Neutrophil % 60.3 % (47-70); Platelet Count 182 K/mm3 (150-450); RBC Distribution Width SD 46.2 fl (35.1-43.9); Red Blood Count 4.88 M/mm3 (4.6-6.2)
[2021-11-20 12:36] LABS: Vitamin D,25 Hydroxy 31.3 ng/mL
[2021-11-20 12:42] LABS: ALB/GLOB Ratio 0.9 RATIO (0.9-2.4); AST(SGOT) 19 U/L (15-37); Alanine Aminotransfer ALT/SGPT 28 U/L (16-61); Albumin, Serum 3.4 g/dL (3.2-5.0); Alkaline Phosphatase 100 U/L (45-117); Anion Gap 6 (5-15); BUN 24 mg/dL (7-18); BUN/Creat Ratio 15.7 RATIO (10-20); Calcium,Total 8.6 mg/dL (8.5-10.1); Chloride 110 mmol/L (98-107); Creatinine, Serum 1.53 mg/dL (0.70-1.30); EST Glomerular Filtration Rate 46 mL/min (>60); Est Glom Filt Rate - Afr Amer 56 mL/min (>60); Globulin 3.9 g/dL (2.2-4.2); Glucose 162 mg/dL (74-106); Potassium 4.6 mmol/L (3.5-5.1); Protein, Total 7.3 g/dL (6.4-8.2); Sodium Level 139 mmol/L (136-145); Thyroid Stim Hormone (TSH) 3.45 uIU/mL (0.358-3.74)
== END 2021-11-20 23:59 | disposition home or self-care (01) ==
LOC: POLAB3 10:11
PROVIDERS: PCP Family Medicine Geriatric Medicine; Visit Provider Family Medicine Geriatric Medicine
DX: E55.9 Vitamin D deficiency, unspecified (principal); R53.83 Other fatigue
CPT/HCPCS: 36415; 80053; 82306; 84443; 85025

== ENCOUNTER → 2022-05-14 | Outpatient (CLI) | payer MEDICARE, OTHER, SELFPAY | END | disposition home or self-care (01) | LOC: LAB.FUTURE 16:40 | PROVIDERS: PCP Family Medicine Geriatric Medicine; Visit Provider Family Medicine Geriatric Medicine | DX: R53.83 Other fatigue (principal); E55.9 Vitamin D deficiency, unspecified ==

== ENCOUNTER → 2022-11-26 | Outpatient (CLI) | payer MEDICARE, OTHER, SELFPAY ==
[2022-11-26 13:30] LABS: Absolute Neutrophil Count 2.9 X10^3/uL (2.0-7.7); Basophil# 0.04 X10^3/uL; Basophil% 0.9 % (0-1); Eosinophil# 0.14 X10^3/uL; Hematocrit 44.6 % (40-54); Hemoglobin 14.2 g/dL (13.0-16.5); Lymphocyte % 23.9 % (19-41); Mean Corp Hgb Conc 31.8 g/dL (32-36); Mean Corpuscular Hgb 31.1 pg (27.0-32.0); Mean Corpuscular Volume 97.6 fL (80-94); Mean Platelet Vol. 10.5 fl (6.2-12.0); Monocyte# 0.39 X10^3/uL; Monocyte% 8.5 % (0-10); NRBC Flagged by Analyzer 0 % (0-5); Neutrophil # 2.92 X10^3/uL (2.7-7.7); Neutrophil % 63.3 % (47-70); Platelet Count 174 K/mm3 (150-450); RBC Distribution Width CV 14.2 % (11.6-14.6); Red Blood Count 4.57 M/mm3 (4.6-6.2); White Blood Count 4.6 K/mm3 (4.4-11.0)
[2022-11-26 13:45] LABS: Vitamin D,25 Hydroxy 32.1 ng/mL
[2022-11-26 14:04] LABS: ALB/GLOB Ratio 0.9 RATIO (0.9-2.4); AST(SGOT) 23 U/L (15-37); Alanine Aminotransfer ALT/SGPT 28 U/L (16-61); Albumin, Serum 3.5 g/dL (3.2-5.0); Alkaline Phosphatase 121 U/L (45-117); Anion Gap 3 (5-15); BUN 30 mg/dL (7-18); BUN/Creat Ratio 18.3 RATIO (10-20); Calcium,Total 8.8 mg/dL (8.5-10.1); Chloride 108 mmol/L (98-107); Creatinine, Serum 1.64 mg/dL (0.70-1.30); EST Glomerular Filtration Rate 43 mL/min (>60); Est Glom Filt Rate - Afr Amer 52 mL/min (>60); Globulin 3.9 g/dL (2.2-4.2); Glucose 123 mg/dL (74-106); Potassium 4.8 mmol/L (3.5-5.1); Protein, Total 7.4 g/dL (6.4-8.2); Sodium Level 136 mmol/L (136-145)
== END | disposition home or self-care (01) ==
LOC: POLAB3 10:30
PROVIDERS: PCP Family Medicine Geriatric Medicine; Visit Provider Internal Medicine Nephrology
DX: I12.9 Hypertensive chronic kidney disease with stage 1 through stage 4 chronic kidney disease, or unspecified chronic kidney disease (principal); N18.32 Chronic kidney disease, stage 3b; E55.9 Vitamin D deficiency, unspecified
CPT/HCPCS: 36415; 80053; 82306; 84100; 84443; 85025

== ENCOUNTER → 2023-01-09 | Outpatient (CLI) | payer MEDICARE, OTHER, SELFPAY ==
[2023-01-09 11:30] LABS: Albumin, Serum 3.3 g/dL (3.2-5.0); BUN 20 mg/dL (7-18); BUN/Creat Ratio 11.2 RATIO (10-20); Calcium,Total 8.6 mg/dL (8.5-10.1); Chloride 109 mmol/L (98-107); Creatinine, Serum 1.78 mg/dL (0.70-1.30); EST Glomerular Filtration Rate 39 mL/min (>60); Est Glom Filt Rate - Afr Amer 47 mL/min (>60); Glucose 155 mg/dL (74-106); Phosphorus 2.7 mg/dL (2.5-4.9); Potassium 4.4 mmol/L (3.5-5.1); Sodium Level 140 mmol/L (136-145)
== END | disposition home or self-care (01) ==
PROVIDERS: PCP Family Medicine Geriatric Medicine; Visit Provider Internal Medicine Nephrology
DX: N18.32 Chronic kidney disease, stage 3b (principal)
CPT/HCPCS: 36415; 80069

== ENCOUNTER → 2023-02-04 | Outpatient (CLI) | payer MEDICARE, OTHER, SELFPAY ==
--- NOTE | 2023-02-04 11:30 | RAD_ITS ---
STUDY: X-RAY CHEST REASON FOR EXAM: Male, 87 years old. Preprocedural evaluation. 4 PPM implant February 18, 2023. TECHNIQUE: Frontal and lateral views of the chest. COMPARISON: None. FINDINGS: Mild hyperinflation. There is no demonstrated pleural abnormality. Cardiomegaly with sternotomy wires, valve replacement and aortic tortuosity with calcification. Normal mediastinum and barry. Normal visualized pulmonary arteries. Diffuse thoracic spondylosis. Normal visualized ribs, clavicles, and shoulders. Large hiatal hernia with air-fluid level. RAD/Chest PA and Lateral IMPRESSION: Cardiomegaly with hyperinflation. Large hiatal hernia with air-fluid level. No active or acute cardiopulmonary disease. Electronically Signed: Taz Caballero MD at 11:53 EDT ,
[2023-02-04 11:37] LABS: Bacteria 0 SEEN /hpf (None Seen); Mucous, Urine 0 SEEN /hpf (<or=2+); Squamous Epithelial Cells - UA 0 SEEN /hpf (0-5); White Blood Cells 0 SEEN /hpf (0-5)
[2023-02-04 12:39] LABS: Color, Urine Yellow (Yellow); Glucose, Dipstick Normal (Normal); Ketone-Dipstick Negative (Negative); Leukocyte Esterase-Dipstick Negative /ul (Negative); Nitrite-Dipstick Negative (Negative); Occult Blood-Urine 10 /ul (Negative); Protein-Dipstick 15 mg/dl (Negative); Specific Gravity, Urine 1.015 (1.002-1.030); Urine Bilirubin Dipstick Negative (Negative); Urine Clarity Clear (Clear); Urine Urobilinogen Normal (Normal)
[2023-02-04 12:42] LABS: Hematocrit 44.8 % (40-54); Hemoglobin 14.5 g/dL (13.0-16.5); Mean Corp Hgb Conc 32.4 g/dL (32-36); Mean Corpuscular Hgb 31.8 pg (27.0-32.0); Mean Corpuscular Volume 98.2 fL (80-94); Mean Platelet Vol. 10.4 fl (6.2-12.0); Platelet Count 171 K/mm3 (150-450); RBC Distribution Width CV 13.3 % (11.6-14.6); Red Blood Count 4.56 M/mm3 (4.6-6.2); White Blood Count 4.8 K/mm3 (4.4-11.0)
[2023-02-04 12:46] LABS: Red Blood Cells-Urine 0-5 SEEN /hpf (0-5)
[2023-02-04 12:47] LABS: International Normalized Ratio 1.1; Prothrombin Time (Protime)PT. 13.7 SECONDS (11.7-14.9)
[2023-02-04 13:12] LABS: Anion Gap 4 (5-15); BUN 21 mg/dL (7-18); BUN/Creat Ratio 12.6 RATIO (10-20); Calcium,Total 8.8 mg/dL (8.5-10.1); Chloride 109 mmol/L (98-107); Creatinine, Serum 1.67 mg/dL (0.70-1.30); EST Glomerular Filtration Rate 42 mL/min (>60); Est Glom Filt Rate - Afr Amer 51 mL/min (>60); Glucose 103 mg/dL (74-106); Potassium 4.9 mmol/L (3.5-5.1); Sodium Level 140 mmol/L (136-145)
== END | disposition home or self-care (01) ==
LOC: RAD 11:19
PROVIDERS: PCP Family Medicine Geriatric Medicine; Referring Provider Internal Medicine Cardiovascular Disease; Visit Provider Internal Medicine Cardiovascular Disease
DX: I44.1 Atrioventricular block, second degree (principal); I44.2 Atrioventricular block, complete; I51.7 Cardiomegaly
CPT/HCPCS: 36415; 71046; 80048; 81001; 85027; 85610

== ENCOUNTER 2023-02-18 14:55 | Observation (INO) | payer MEDICARE, OTHER, SELFPAY ==
[2023-02-15 06:58] VITALS: BMI 28.9
[2023-02-18] VITALS (9 sets, daily range): BP systolic 112–127; BP diastolic 57–92; PULSE 74–82; RESP 15–18; TEMP 36.6–36.9; O2SAT 92–98
[2023-02-18 13:17] LABS: Albumin, Serum 3.5 g/dL (3.2-5.0); BUN 22 mg/dL (7-18); BUN/Creat Ratio 13.2 RATIO (10-20); Calcium,Total 8.7 mg/dL (8.5-10.1); Chloride 109 mmol/L (98-107); Creatinine, Serum 1.67 mg/dL (0.70-1.30); EST Glomerular Filtration Rate 42 mL/min (>60); Est Glom Filt Rate - Afr Amer 51 mL/min (>60); Estimated Creatinine Clearance 32.34 ml/min; Glucose 103 mg/dL (74-106); Phosphorus 2.7 mg/dL (2.5-4.9); Potassium 4.3 mmol/L (3.5-5.1); Sodium Level 138 mmol/L (136-145)
--- NOTE | 2023-02-18 15:00 | CL.IE_ITS ---
Patient: NOAH TERRY Study Date: 02/18/2023 Performing: Juan Carlos Duval MD : 1935 Age: 87 Gender: male PROCEDURES PERFORMED [id number])INITIAL PACER INSERT+DUAL LEADS INDICATIONS second drgree A.V. block w/ intermittent third degree A.V. block PROCEDURE DETAILS The patient was brought to the Catheterization Lab in the postabsorptive nonsedated state. Informed consent was obtained prior to the procedure. Local anesthetic was given subcutaneously to the left upper chest area with Lidocaine 2%. Access was achieved and a guidewire was advanced into the left subclavian vein. Incision was made to the left upper chest. A peel-away sheath was inserted into the left subclavian vein. PPM ventricular lead was inserted / positioned to right ventricular apex. PPM ventricular lead testing performed. PPM ventricular lead testing performed. A peel-away sheath was inserted into the left subclavian vein. PPM atrial lead was inserted / positioned to the right atrial appendage. PPM atrial lead testing performed. The Atrial lead sutured in place with 2-0 Silk. The Ventricular PM lead sutured in place with 2-0 Silk. Device pocket was irrigated with antibiotic. PPM generator was attached to the lead(s) and inserted into the pocket. Subcutaneous closure was completed with 3-0 Vicryl. Skin closure was completed with 4-0 Vicryl. Steri-strips applied to Lt chest area. Instrument, sponge, and needle counts were noted to be normal. The patient tolerated the procedure well. 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, Model # L111 , Serial # [id number] PPM Atrial lead - Insulation Batting Machine Operator: [employer], Model # 7841 , Serial # [id number] PPM Ventricular lead - Insulation Batting Machine Operator: [employer], Model # 7842 , Serial # [id number] DEVICE PARAMETERS ATRIAL LEAD PARAMETERS: P wave- 5.9 (mV) Current- 1.3 (mA) threshold- 0.7 (V) impedence- 555 (OHMS) VENTRICULAR LEAD PARAMETERS: R wave- 23.4 (mV) Current- 0.3 (mA) threshold- 0.3 (V) impedence- 872 (OHMS) DEVICE PARAMETERS: Mode- DDD Lower rate- 60 Upper rate- 130 CONCLUSIONS / RECOMMENDATIONS Device Conclusions: Successful implantation of a dual chamber pacemaker Device Recommendations: Follow up with Primary Care Physician PROCEDURE MEDICATIONS Fentanyl 50 mcg IV Versed 1 mg IV Fentanyl 50 mcg IV Versed 1 mg IV Fentanyl 25 mcg IV Oxygen: 2 L/min via nasal cannula Oxygen: 4 L/min via nasal cannula Oxygen: 6 L/min via nasal cannula Oxygen: 4 L/min via nasal cannula Antibiotic given in appropriate timeframe. Ancef 2 Gm IV @ 02/18/2023 13:24:33 Signed By Juan Carlos Duval MD On 02/18/2023 14:59:33 Juan Carlos Duval MD
[2023-02-18] MEDS: Aspirin E.C. 81 MG Tablet PO (17:06)
[2023-02-18] MEDS: Atorvastatin Calcium 40 MG Tablet PO (22:16)
[2023-02-19] MEDS: Levothyroxine 50 MCG Tablet PO (04:07)
--- NOTE | 2023-02-19 04:08 | NURSING ---
Pt requests to have AM medication at this time.
[2023-02-19 04:11] VITALS: BP 128/76; PULSE 75; RESP 18; TEMP 36.4; O2SAT 95
--- NOTE | 2023-02-19 05:55 | RAD_ITS ---
STUDY: X-RAY CHEST REASON FOR EXAM: Male, 87 years old. Post permanant ICD/Pacemaker -- inspiration/expiration. Arms Down. Wet read to MD TECHNIQUE: Single AP portable view of the chest. COMPARISON: February 04, 2023 chest x-ray FINDINGS: The lungs are clear and expanded. There is no demonstrated pleural abnormality. Sternal cerclage wires are present from a prior sternotomy. There is visually closer to pacer leads overlying the heart radiates from the right ventricle. Normal mediastinum and barry. Normal visualized pulmonary arteries. Normal visualized aortic arch and descending thoracic aorta. Normal visualized thoracic spine. Normal visualized ribs, clavicles, and shoulders. There is a large hiatal hernia measuring 9.1 x 9.8 cm. RAD/Chest 3 View IMPRESSION: Status post placement of left-sided defibrillator without pneumothorax. Large right hernia. Status post sternotomy. Electronically Signed: Radha Ann MD at 4:49 EDT ,
--- NOTE | 2023-02-19 08:39 | PCM.PN.CARD ---
Subjective Subjective Patient seen and evaluated. Appears to be stable. Pacemaker interrogated today working well. Objective Data Vital Signs: Vital Signs Temp Pulse Resp BP Pulse Ox O2 Del Method 97.6 F L 75 18 128/76 H 95 Room Air 02/19/23 04:11 02/19/23 04:11 02/19/23 04:11 02/19/23 04:11 02/19/23 04:11 02/19/23 04:11 Oxygen Delivery Method Room Air Weight: 196 lb Body Mass Index (BMI) 28.9 Intake & Output: Intake and Output for Last 24 Hours 02/17/23 02/18/23 02/19/23 23:59 23:59 23:59 Output Total 650 / 650 Balance -650 / -650 Lab / Micro Data 02/18/23 12:29 Labs: Laboratory Results - last 24 hr 02/18/23 12:29: Sodium 138, Potassium 4.3, Chloride 109 H, Carbon Dioxide 24.0, BUN 22 H, Creatinine 1.67 H, Estim Creat Clear Calc 32.34, Est GFR (MDRD) Af Amer 51 L, Est GFR (MDRD) Non-Af 42 L, BUN/Creatinine Ratio 13.2, Glucose 103, Calcium 8.7, Phosphorus 2.7, Albumin 3.5 Cardiology Labs/Tests 02/18/23 12:29: Sodium 138, Potassium 4.3, Chloride 109 H, Carbon Dioxide 24.0, BUN 22 H, Creatinine 1.67 H, Est GFR (MDRD) Af Amer 51 L, Est GFR (MDRD) Non-Af 42 L, BUN/Creatinine Ratio 13.2, Glucose 103, Calcium 8.7, Phosphorus 2.7 Rhythm: EKG: ECHO: Stress Test: Cardiac Cath: PCI: CT Surgery: Holter monitor: EPS: PPM: CXR: Chest CT Scan: Radiography Diagnostic Testing: Radiology Impression Chest X-Ray 02/19/23 05:55 IMPRESSION: Status post placement of left-sided defibrillator without pneumothorax. Large right hernia. Status post sternotomy. Electronically Signed: Radha Ann MD at 4:49 EDT , Physical Exam Const alert, oriented x3 and no apparent distress General Appearance: cooperative HEENT hearing grossly normal bilaterally Head and Scalp: atraumatic Eyes EOMs intact bilaterally Neck General: normal visual inspection Chest inspection of chest normal and palpation of chest normal Resp normal respiratory effort Auscultation: clear to auscultation bilaterally Cardio regular rate, regular rhythm, S1 normal heart sound and S2 normal heart sound Jugular Venous Distention: JVD GI normal to inspection, nondistended, normoactive bowel sounds Extremity normal capillary refill and no pedal edema Peripheral Pulses: Yes pulses 2+ throughout and femoral pulses present Skin no rashes or lesions noted Neuro oriented x3 and CN's II-XII intact bilaterally Psych Appearance: grossly normal and appropriate Assessment & Plan Assessment/Plan (1) 2nd degree AV block: PLAN: Patient underwent placement of a dual-chamber pacemaker. Pacemaker interrogation demonstrates normal pacer function chest x-ray demonstrates no evidence of pneumothorax. Patient will be discharged for outpatient follow-up. Thank you for allowing me to participate in the care of your patient. Please don't hesitate to call if any issues arise.
--- NOTE | 2023-02-19 08:41 | DCINST_ITS ---
Discharge Instructions Diet Discharge Diet: No restrictions (as you feel able. No excessive stretching. No lifting your arm over your head (keep elbow below shoulder level) until seen for your pacemaker check. Do not lift your elbow away from your side until you are seen for your first visit. Keep the arm sling on if it helps remind you not to lift your arm.) Activity Discharge Activity: May Not Drive May shower in (days): 2 Additional Activity Instructions:: May shower or bathe on [day 3]. Do not scrub the incision or soak in the tub. Just wash with soap and let the water run over the incision. Gently pat dry with towel. Medications: Take your pain medication as directed. Refer to your discharge instruction sheet for a list of medications you are to take. Dressing / Incision Call your doctor if your incision/area has: Continuous Slow Oozing, Sudden Increased Bleeding, Increased Pain/ Swelling, Increased Redness, Foul Smelling Discharge and Swelling at the incision site Call your doctor if you observe: Fever of 101 or Higher, Shortness of breath, Dizziness, Fainting spells, Swelling in the ankles, Chest pain, Prolonged hiccupping and Increased palpitations (irregular heartbeat) Suture Line Care: Avoid Pulling/Pushing and Avoid Pinching/Bending Cleanse incision/area with: Keep Dressing Clean & Dry Additional Dressing/Incision Instructions:: When dressing is removed, wash and dry incision. Keep covered with a light bandage if it is rubbing against your clothing. Do not cover the incision with an airtight bandage. Change the bandage daily. Do not remove steri strips. The strips will fall off on their own. Follow Up Care Please Follow Up With: Juan Carlos Duval MD When: Pacer follow-up on February 25 at 9 AM Test Results: Test results from this visit will be discussed in further detail at your follow- up appointment, if applicable. Discharge Plan Admission Admit Date/Time: 02/18/23 14:55 Attending Provider: Juan Carlos Duval Primary Care Provider: Jame Hebert Chi Consulting Providers: Carmen Red Discharge Orders/Prescriptions Prescriptions: No Action aspirin [Adult Low Dose Aspirin] 81 mg tablet,delayed release (DR/EC) 81 mg PO QDAY omeprazole 20 mg capsule,delayed release(DR/EC) 20 mg PO ONCE levothyroxine 50 mcg capsule 50 mcg capsule 50 mcg PO QDAY losartan 25 mg tablet 25 mg PO DAILY Qty: 90 3RF atorvastatin 40 mg tablet 40 mg PO DAILY Qty: 90 3RF pantoprazole 40 mg tablet,delayed release (DR/EC) 40 mg PO DAILY multivitamin [Daily Multi-Vitamin] Tablet 1 tab PO DAILY Referrals / Follow Up: Jame Hebert Chi, MD [Primary Care Provider] - Disposition Disposition (needs filled in before D/C Order can be placed): Home, Self Care
[2023-02-19] MEDS: Aspirin E.C. 81 MG Tablet PO (08:43)
[2023-02-19] MEDS: Losartan Potassium 25 MG Tablet PO (08:44)
[2023-02-19] MEDS: Pantoprazole Sodium 20 MG Tablet PO (08:44)
[2023-02-19] MEDS: Multivitamins,Therapeutic Tablet 1 TABLET PO (08:44)
--- NOTE | 2023-02-19 10:48 | CASEMGMT ---
Patient has order for discharge. RN CM in to discuss needs at discharge. Patient and deny needs at this time. Patient and had no further questions or concerns at this time.
[2023-02-19 10:55] VITALS: BP 131/67; PULSE 76; RESP 16; TEMP 36.6; O2SAT 97
== END 2023-02-19 08:40 | disposition home or self-care (01) ==
LOC: PCU 15:48
PROVIDERS: Admitting Provider Internal Medicine Cardiovascular Disease; PCP Family Medicine Geriatric Medicine; Referring Provider Internal Medicine Cardiovascular Disease; Visit Provider Internal Medicine Cardiovascular Disease
DX: Z45.018 Encounter for adjustment and management of other part of cardiac pacemaker (principal); I44.2 Atrioventricular block, complete; I44.1 Atrioventricular block, second degree; Z95.2 Presence of prosthetic heart valve; Z87.891 Personal history of nicotine dependence; Z79.82 Long term (current) use of aspirin; Z79.899 Other long term (current) drug therapy; Z79.890 Hormone replacement therapy; E03.9 Hypothyroidism, unspecified; E87.5 Hyperkalemia; M19.90 Unspecified osteoarthritis, unspecified site
CPT/HCPCS: 33208; 36415; 71047; 80069; 99152; 99153; 99221; J7040; J7050; C1894; G0378

== ENCOUNTER → 2023-05-22 | Outpatient (CLI) | payer MEDICARE, OTHER, SELFPAY ==
[2023-05-22 11:03] LABS: Absolute Lymphocyte Count 1.34 X10^3/uL (0.83-4.51); Absolute Neutrophil Count 3.7 X10^3/uL (2.0-7.7); Basophil# 0.04 X10^3/uL; Basophil% 0.7 % (0-1); Eosinophils% 1.7 % (0-5); Hemoglobin 14.9 g/dL (13.0-16.5); Lymphocyte # 1.34 X10^3/ul (0.83-4.51); Lymphocyte % 23.2 % (19-41); Mean Corp Hgb Conc 32.4 g/dL (32-36); Mean Corpuscular Hgb 32.3 pg (27.0-32.0); Mean Corpuscular Volume 99.6 fL (80-94); Mean Platelet Vol. 10.7 fl (6.2-12.0); Monocyte# 0.54 X10^3/uL; Monocyte% 9.4 % (0-10); NRBC Flagged by Analyzer 0 % (0-5); Neutrophil # 3.69 X10^3/uL (2.7-7.7); Platelet Count 151 K/mm3 (150-450); RBC Distribution Width CV 12.7 % (11.6-14.6); RBC Distribution Width SD 46.6 fl (35.1-43.9); Red Blood Count 4.62 M/mm3 (4.6-6.2); White Blood Count 5.8 K/mm3 (4.4-11.0)
[2023-05-22 11:05] LABS: Vitamin D,25 Hydroxy 34.7 ng/mL
[2023-05-22 11:28] LABS: ALB/GLOB Ratio 0.9 RATIO (0.9-2.4); AST(SGOT) 17 U/L (15-37); Alanine Aminotransfer ALT/SGPT 26 U/L (16-61); Albumin, Serum 3.6 g/dL (3.2-5.0); Alkaline Phosphatase 123 U/L (45-117); Anion Gap 5 (5-15); BUN 25 mg/dL (7-18); BUN/Creat Ratio 14.9 RATIO (10-20); Chloride 107 mmol/L (98-107); Creatinine, Serum 1.68 mg/dL (0.70-1.30); EST Glomerular Filtration Rate 41 mL/min (>60); Est Glom Filt Rate - Afr Amer 50 mL/min (>60); Globulin 3.8 g/dL (2.2-4.2); Glucose 147 mg/dL (74-106); Potassium 4.7 mmol/L (3.5-5.1); Protein, Total 7.4 g/dL (6.4-8.2); Sodium Level 136 mmol/L (136-145); Thyroid Stim Hormone (TSH) 4.03 uIU/mL (0.358-3.74)
== END | disposition home or self-care (01) ==
PROVIDERS: PCP Family Medicine Geriatric Medicine; Visit Provider Family Medicine Geriatric Medicine
DX: I10 Essential (primary) hypertension (principal); E55.9 Vitamin D deficiency, unspecified
CPT/HCPCS: 36415; 80053; 82306; 84443; 85025

== ENCOUNTER → 2023-07-10 | Outpatient (CLI) | payer MEDICARE, OTHER, SELFPAY ==
--- NOTE | 2023-07-10 08:57 | ECHOD_ITS ---
Reason For Study: SVT Procedure This was a 2D Doppler, Color Flow transthoracic echocardiogram. Exam performed in department. Left Ventricle Normal LV size. Left ventricular systolic function is normal. The estimated ejection fraction is 55 %. Stage 1 diastolic dysfunction. No regional wall motion abnormalities noted. Right Ventricle Normal RV size. ICD or pacer leads identified within the right ventricle. Normal systolic function. Atria Normal left atrium. Normal right atrium. Mitral Valve Normal mitral valve. Tricuspid Valve Normal tricuspid valve. Mild (1+) tricuspid valve insufficiency. Pulmonary artery systolic pressure is 24 mmHg. Aortic Valve Bioprosthetic aortic valve functioning normally. Pulmonic Valve Normal pulmonic valve. Great Vessels Normal aortic root. The pulmonary artery is normal size. Normal inferior vena cava. Pericardium/Pleural No pericardial effusion. MMode/2D Measurements & Calculations LVIDd: 3.6 cm IVSd: 1.1 cm LVOT diam: 2.0 cm LVIDs: 2.4 cm LVPWd: 1.1 cm LVOT area: 3.3 cm2 RVDd: 3.2 cm FS: 32.2 % Ao root diam: 3.4 cm LAV(MOD-bp): 42.6 ml LVAd ap4: 25.6 cm2 LAV(MOD-bp) Indexed: 21.3 ml/m2 LVLd ap4: 7.7 cm LAV(MOD-sp2): 38.7 ml EDV(MOD-sp4): 69.0 ml LAV(MOD-sp4): 45.2 ml EDV(sp4-el): 72.2 ml LVAs ap4: 14.5 cm2 LVLs ap4: 6.3 cm ESV(MOD-sp4): 28.1 ml ESV(sp4-el): 28.4 ml EF(MOD-sp4): 59.2 % EF(sp4-el): 60.7 % SV(MOD-sp4): 40.9 ml SV(sp4-el): 43.9 ml LA A4 area: 17.8 cm2 LA dimension(2D): 3.1 cm RA A4 area: 16.2 cm2 Time Measurements MV dec time: 0.11 sec Doppler Measurements & Calculations MV E max justen: 49.4 cm/sec Lat Peak E' Justen: 7.4 cm/sec Med Peak E' Justen: 6.5 cm/sec MV A max justen: 93.5 cm/sec E/E' lat: 6.6 E/E' med: 7.5 MV E/A: 0.53 Ao V2 max: 107.1 cm/sec LV V1 max: 93.9 cm/sec SV(LVOT): 57.3 ml Ao max P.6 mmHg LV V1 max P.5 mmHg Ao V2 mean: 74.6 cm/sec LV V1 mean P.8 mmHg Ao mean P.5 mmHg LV V1 mean: 62.9 cm/sec Ao V2 VTI: 18.4 cm LV V1 VTI: 17.4 cm AV (velocity ratio): 0.95 KATIUKSA(I,D): 3.1 cm2 KATIUSKA(V,D): 2.9 cm2 PA V2 max: 79.7 cm/sec TR max justen: 227.6 cm/sec TR max P.7 mmHg ECHO/Echo Complete Interpretation Summary Normal LV size. Left ventricular systolic function is normal. The estimated ejection fraction is 55 %. Stage 1 diastolic dysfunction. ICD or pacer leads identified within the right ventricle. Bioprosthetic aortic valve functioning normally. Ordering Physician: Sarah Abdi/Juan Carlos Duval Referring Physician: EDEL PERRY Performed By: Rajwinder Leary RDCS
== END | disposition home or self-care (01) ==
LOC: CVS 08:55
PROVIDERS: PCP Family Medicine Geriatric Medicine; Referring Provider Physician Assistant Medical; Visit Provider Physician Assistant Medical
DX: I47.10 Supraventricular tachycardia, unspecified (principal); Z95.2 Presence of prosthetic heart valve; Z95.828 Presence of other vascular implants and grafts
CPT/HCPCS: 93306

== ENCOUNTER → 2023-07-10 | Outpatient (CLI) | payer MEDICARE, OTHER, SELFPAY ==
[2023-07-10 11:14] LABS: Albumin, Serum 3.7 g/dL (3.2-5.0); BUN 26 mg/dL (7-18); BUN/Creat Ratio 15.6 RATIO (10-20); Calcium,Total 8.9 mg/dL (8.5-10.1); Chloride 110 mmol/L (98-107); Creatinine, Serum 1.67 mg/dL (0.70-1.30); EST Glomerular Filtration Rate 42 mL/min (>60); Est Glom Filt Rate - Afr Amer 50 mL/min (>60); Glucose 91 mg/dL (74-106); Phosphorus 2.9 mg/dL (2.5-4.9); Potassium 4.5 mmol/L (3.5-5.1); Sodium Level 139 mmol/L (136-145); Thyroid Stim Hormone (TSH) 3.14 uIU/mL (0.358-3.74)
== END | disposition home or self-care (01) ==
PROVIDERS: PCP Family Medicine Geriatric Medicine; Visit Provider Internal Medicine Nephrology
DX: N18.32 Chronic kidney disease, stage 3b (principal); E03.9 Hypothyroidism, unspecified
CPT/HCPCS: 36415; 80069; 84443

== ENCOUNTER 2023-10-23 09:49 | Outpatient (RCR) | payer MEDICARE, OTHER, SELFPAY ==
[2023-10-16 11:21] LABS: International Normalized Ratio 1.4; Prothrombin Time (Protime)PT. 17.2 SECONDS (11.7-14.9)
[2023-10-23 11:08] LABS: International Normalized Ratio 1.7; Prothrombin Time (Protime)PT. 20.1 SECONDS (11.7-14.9)
[2023-10-31 10:40] LABS: Prothrombin Time (Protime)PT. 22.4 SECONDS (11.7-14.9)
== END 2023-11-10 01:38 | disposition home or self-care (01) ==
LOC: LAB 09:49
PROVIDERS: PCP Family Medicine Geriatric Medicine; Visit Provider Physician Assistant Medical
DX: I48.0 Paroxysmal atrial fibrillation (principal)
CPT/HCPCS: 36415; 85610

== ENCOUNTER → 2023-10-30 | Outpatient (CLI) | payer MEDICARE, OTHER, SELFPAY | END | disposition home or self-care (01) | LOC: LAB 10:53 | PROVIDERS: PCP Family Medicine Geriatric Medicine; Referring Provider Physician Assistant Medical; Visit Provider Physician Assistant Medical | DX: I48.0 Paroxysmal atrial fibrillation (principal) ==

== ENCOUNTER → 2023-11-06 | Outpatient (CLI) | payer MEDICARE, OTHER, SELFPAY ==
[2023-11-06 10:37] LABS: International Normalized Ratio 2.4
== END | disposition home or self-care (01) ==
LOC: LAB 09:14
PROVIDERS: PCP Family Medicine Geriatric Medicine; Visit Provider Physician Assistant Medical
DX: I48.0 Paroxysmal atrial fibrillation (principal)
CPT/HCPCS: 36415; 85610

== ENCOUNTER 2023-11-27 08:55 | Outpatient (RCR) | payer MEDICARE, OTHER, SELFPAY ==
[2023-11-13 11:37] LABS: International Normalized Ratio 2.6; Prothrombin Time (Protime)PT. 27.6 SECONDS (11.7-14.9)
[2023-11-27 10:02] LABS: International Normalized Ratio 2.3; Prothrombin Time (Protime)PT. 24.8 SECONDS (11.7-14.9)
== END 2023-12-10 22:43 | disposition home or self-care (01) ==
LOC: LAB 08:55
PROVIDERS: PCP Family Medicine Geriatric Medicine; Visit Provider Physician Assistant Medical
DX: I48.0 Paroxysmal atrial fibrillation (principal)
CPT/HCPCS: 36415; 85610

== ENCOUNTER → 2023-12-02 | Outpatient (CLI) | payer MEDICARE, OTHER, SELFPAY ==
[2023-12-02 11:34] LABS: Absolute Lymphocyte Count 1.26 X10^3/uL (0.83-4.51); Absolute Neutrophil Count 3.3 X10^3/uL (2.0-7.7); Basophil# 0.04 X10^3/uL; Basophil% 0.8 % (0-1); Eosinophils% 1.9 % (0-5); Hemoglobin 14.9 g/dL (13.0-16.5); Lymphocyte # 1.26 X10^3/ul (0.83-4.51); Lymphocyte % 24.1 % (19-41); Mean Corp Hgb Conc 33.1 g/dL (32-36); Mean Corpuscular Hgb 32.7 pg (27.0-32.0); Mean Corpuscular Volume 98.9 fL (80-94); Monocyte# 0.44 X10^3/uL; Monocyte% 8.4 % (0-10); NRBC Flagged by Analyzer 0 % (0-5); Neutrophil # 3.34 X10^3/uL (2.7-7.7); Neutrophil % 63.8 % (47-70); Platelet Count 160 K/mm3 (150-450); Red Blood Count 4.55 M/mm3 (4.6-6.2); White Blood Count 5.2 K/mm3 (4.4-11.0)
[2023-12-02 11:54] LABS: Vitamin D,25 Hydroxy 34.9 ng/mL
[2023-12-02 12:12] LABS: AST(SGOT) 22 U/L (15-37); Alanine Aminotransfer ALT/SGPT 27 U/L (16-61); Albumin, Serum 3.7 g/dL (3.2-5.0); Alkaline Phosphatase 142 U/L (45-117); Anion Gap 6 (5-15); BUN 24 mg/dL (7-18); BUN/Creat Ratio 15.4 RATIO (10-20); Calcium,Total 8.7 mg/dL (8.5-10.1); Chloride 111 mmol/L (98-107); Creatinine, Serum 1.56 mg/dL (0.70-1.30); EST Glomerular Filtration Rate 45 mL/min (>60); Est Glom Filt Rate - Afr Amer 55 mL/min (>60); Globulin 3.8 g/dL (2.2-4.2); Glucose 118 mg/dL (74-106); Potassium 4.6 mmol/L (3.5-5.1); Protein, Total 7.5 g/dL (6.4-8.2); Sodium Level 140 mmol/L (136-145); Thyroid Stim Hormone (TSH) 3.43 uIU/mL (0.358-3.74)
== END | disposition home or self-care (01) ==
LOC: POLAB3 10:21
PROVIDERS: PCP Family Medicine Geriatric Medicine; Visit Provider Family Medicine Geriatric Medicine
DX: I10 Essential (primary) hypertension (principal); E55.9 Vitamin D deficiency, unspecified
CPT/HCPCS: 36415; 80053; 82306; 84443; 85025

== ENCOUNTER 2023-12-18 09:29 | Outpatient (RCR) | payer MEDICARE, OTHER, SELFPAY ==
[2023-12-18 10:39] LABS: International Normalized Ratio 2.3
== END 2023-12-18 18:00 | disposition home or self-care (01) ==
LOC: LAB 09:29
PROVIDERS: PCP Family Medicine Geriatric Medicine; Referring Provider Physician Assistant Medical; Visit Provider Physician Assistant Medical
DX: I48.0 Paroxysmal atrial fibrillation (principal)
CPT/HCPCS: 36415; 85610

== ENCOUNTER 2024-01-22 10:26 | Outpatient (RCR) | payer MEDICARE, OTHER, SELFPAY ==
[2024-01-22 11:16] LABS: International Normalized Ratio 2.5; Prothrombin Time (Protime)PT. 26.5 SECONDS (11.7-14.9)
== END 2024-01-22 18:00 | disposition home or self-care (01) ==
LOC: LAB 10:26
PROVIDERS: PCP Family Medicine Geriatric Medicine; Referring Provider Physician Assistant Medical; Visit Provider Physician Assistant Medical
DX: I48.0 Paroxysmal atrial fibrillation (principal)
CPT/HCPCS: 36415; 85610

== ENCOUNTER 2024-02-26 09:56 | Outpatient (RCR) | payer MEDICARE, OTHER, SELFPAY ==
[2024-02-26 11:47] LABS: International Normalized Ratio 2.3; Prothrombin Time (Protime)PT. 25.5 SECONDS (11.7-14.9)
[2024-02-26 11:59] LABS: PTHIN 129.9 pg/mL (18.4-80.1)
[2024-02-26 12:16] LABS: Albumin, Serum 3.4 g/dL (3.2-5.0); BUN 22 mg/dL (7-18); BUN/Creat Ratio 13.8 RATIO (10-20); Calcium,Total 8.4 mg/dL (8.5-10.1); Chloride 109 mmol/L (98-107); EST Glomerular Filtration Rate 44 mL/min (>60); Est Glom Filt Rate - Afr Amer 53 mL/min (>60); Glucose 142 mg/dL (74-106); Phosphorus 2.3 mg/dL (2.5-4.9); Potassium 4.3 mmol/L (3.5-5.1); Sodium Level 138 mmol/L (136-145)
== END 2024-03-11 18:00 | disposition home or self-care (01) ==
LOC: LAB 09:56
PROVIDERS: PCP Family Medicine Geriatric Medicine; Referring Provider Physician Assistant Medical; Visit Provider Physician Assistant Medical
DX: N18.32 Chronic kidney disease, stage 3b (principal); I48.0 Paroxysmal atrial fibrillation
CPT/HCPCS: 36415; 80069; 83970; 85610

== ENCOUNTER → 2024-04-01 | Outpatient (CLI) | payer MEDICARE, OTHER, SELFPAY ==
[2024-04-01 10:18] LABS: International Normalized Ratio 2.5; Prothrombin Time (Protime)PT. 26.9 SECONDS (11.7-14.9)
== END | disposition home or self-care (01) ==
LOC: LAB 09:08
PROVIDERS: PCP Family Medicine Geriatric Medicine; Referring Provider Physician Assistant Medical; Visit Provider Physician Assistant Medical
DX: I48.0 Paroxysmal atrial fibrillation (principal); Z79.01 Long term (current) use of anticoagulants
CPT/HCPCS: 36415; 85610

== ENCOUNTER 2024-04-29 10:46 | Outpatient (RCR) | payer MEDICARE, OTHER, SELFPAY ==
[2024-04-29 11:37] LABS: International Normalized Ratio 2.6; Prothrombin Time (Protime)PT. 27.9 SECONDS (11.7-14.9)
== END 2024-04-29 18:00 | disposition home or self-care (01) ==
LOC: LAB 10:46
PROVIDERS: PCP Family Medicine Geriatric Medicine; Referring Provider Physician Assistant Medical; Visit Provider Physician Assistant Medical
DX: I48.0 Paroxysmal atrial fibrillation (principal); Z79.01 Long term (current) use of anticoagulants
CPT/HCPCS: 36415; 85610

== ENCOUNTER 2024-05-04 09:16 | Emergency (ER) | payer MEDICARE, OTHER, SELFPAY ==
[2024-05-04] VITALS (7 sets, daily range): BP systolic 104–127; BP diastolic 71–83; PULSE 62–78; RESP 14–18; TEMP 36.6; O2SAT 97–99; BMI 28.2
--- NOTE | 2024-05-04 09:23 | NURSING ---
NO OLD EKGS
--- NOTE | 2024-05-04 10:39 | RAD_ITS ---
STUDY: X-RAY CHEST REASON FOR EXAM: Male, 88 years old. Chest pain TECHNIQUE: PA and lateral views of the chest. COMPARISON: Comparison is made with prior study dated February 19, 2023. FINDINGS: EKG electrodes are seen. Stable mild increased markings at the lung bases suggestive scarring. Stable increased linear markings in the medial aspect of the left upper lobe suggestive of scarring. There is no demonstrated pleural abnormality. Sternal cerclage wires and vascular clips are present from a prior sternotomy and coronary artery bypass graft procedure (CABG). A left-sided dual-chamber pacemaker is seen. Normal mediastinum and barry. Normal visualized pulmonary arteries. There is atherosclerotic calcification of the aortic arch with tortuosity. There are diffuse degenerative changes of the visualized thoracic spine. Normal visualized ribs, clavicles, and shoulders. Moderate size hiatal hernia. RAD/Chest PA and Lateral IMPRESSION: Findings suggestive for scarring at the lung bases in the right upper lobe as described. Moderate-sized hiatal hernia. Electronically Signed: Flako Dunaway MD at 11:25 EDT ,
--- NOTE | 2024-05-04 10:39 | EKG12_ITS ---
Test Reason : CP Blood Pressure : / mmHG Vent. Rate : 073 BPM Atrial Rate : 073 BPM P-R Int : 236 ms QRS Dur : 072 ms QT Int : 368 ms P-R-T Axes : -02 -28 -12 degrees QTc Int : 405 ms Sinus rhythm with 1st degree A-V block Otherwise normal ECG Confirmed by Braulio Bobo ([id number]), editor city DOROTHEA MORALES ([id number]) on 05/05/2024 10:08:34 AM Referred By: Confirmed By:Braulio Bobo
[2024-05-04 10:56] LABS: Absolute Lymphocyte Count 1.04 X10^3/uL (0.83-4.51); Absolute Neutrophil Count 3.2 X10^3/uL (2.0-7.7); Basophil# 0.03 X10^3/uL; Basophil% 0.6 % (0-1); Eosinophil# 0.09 X10^3/uL; Eosinophils% 1.8 % (0-5); Hematocrit 43.7 % (40-54); Hemoglobin 14.2 g/dL (13.0-16.5); Lymphocyte # 1.04 X10^3/ul (0.83-4.51); Lymphocyte % 21.4 % (19-41); Mean Corp Hgb Conc 32.5 g/dL (32-36); Mean Corpuscular Hgb 32.3 pg (27.0-32.0); Mean Corpuscular Volume 99.3 fL (80-94); Mean Platelet Vol. 10.6 fl (6.2-12.0); Monocyte# 0.45 X10^3/uL; Monocyte% 9.2 % (0-10); NRBC Flagged by Analyzer 0 % (0-5); Neutrophil # 3.17 X10^3/uL (2.7-7.7); Neutrophil % 65.2 % (47-70); Platelet Count 158 K/mm3 (150-450); RBC Distribution Width CV 12.6 % (11.6-14.6); RBC Distribution Width SD 46.5 fl (35.1-43.9); White Blood Count 4.9 K/mm3 (4.4-11.0)
[2024-05-04 11:10] LABS: Prothrombin Time (Protime)PT. 30.5 SECONDS (11.7-14.9)
[2024-05-04 11:24] LABS: Anion Gap 7 (5-15); BUN 25 mg/dL (7-18); BUN/Creat Ratio 15.2 RATIO (10-20); Calcium,Total 8.9 mg/dL (8.5-10.1); Chloride 107 mmol/L (98-107); Creatinine, Serum 1.65 mg/dL (0.70-1.30); EST Glomerular Filtration Rate 42 mL/min (>60); Est Glom Filt Rate - Afr Amer 51 mL/min (>60); Estimated Creatinine Clearance 35.06 ml/min; Glucose 122 mg/dL (74-106); Potassium 4.5 mmol/L (3.5-5.1); Sodium Level 138 mmol/L (136-145); Troponin-I HS (w/2H Reflex) 7 pg/mL (3.0-78.0)
--- NOTE | 2024-05-04 11:25 | EDS_ITS ---
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 He states that started on Saturday. He states he gets a sporadic sharp pain in the left side of his chest. Does not radiate. It lasted for couple seconds at a time. He has no associated symptoms including shortness of breath, sweating, nausea or difficulty breathing. He notes recently he did have a cold and chest congestion was coughing up a lot of mucus. He states that is continuing to improve. The pain is not worse with coughing or deep breathing. He denies any swelling of his legs. Denies any history of pneumonia. Denies any history of pain like this. No other complaints or concerns reported at this time. Currently denies any chest pain. 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 Postoperative atrial fibrillation Hyperlipidemia Hypothyroidism Nonrheumatic aortic (valve) stenosis Thoracic aortic aneurysm Barretts esophagus Arthritis PSVT (paroxysmal supraventricular tachycardia) Home Medications ?Medication ?Instructions ?Recorded ?Last Taken ?Type omeprazole 20 mg capsule,delayed 20 mg PO ONCE 07/15/17 Unknown History release multivitamin (Daily Multi-Vitamin 1 tab PO DAILY 01/09/23 Unknown History tablet) pantoprazole 40 mg tablet,delayed 40 mg PO DAILY 01/09/23 Unknown History release levothyroxine 50 mcg capsule 75 mcg PO QDAY 09/11/23 Unknown History metoprolol tartrate 25 mg tablet 25 mg PO BID #180 tabs 09/11/23 Unknown Rx warfarin 2.5 mg tablet 2.5 mg PO DAILY #90 tabs 11/25/23 Unknown Rx atorvastatin 40 mg tablet 40 mg PO DAILY #90 tabs 12/25/23 Unknown Rx Allergy/AdvReac Type Severity Reaction Status Date / Time No Known Allergies Allergy Verified 05/04/24 09:27 Surgical History S/P left atrial appendage ligation (08/08/22) 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/08/22) H/O aortic valve replacement (08/08/22) History of endoscopy (09/08/18) History of left heart catheterization (09/08/07) History of radiofrequency ablation procedure for cardiac arrhythmia (09/24/07) History of appendectomy Inguinal hernia Total knee replacement status (~2003) Social History Smoking Status: Former smoker pack-years: 20 alcohol intake: current alcohol intake frequency: holidays/special occasions only ROS ROS ED Constitutional Constitutional ED: Denies chills or fever(s) Cardiovascular Cardiovascular: Reports as per HPI and chest pain Respiratory/Chest Respiratory/Chest: Denies cough or dyspnea Gastrointestinal Gastrointestinal: Denies nausea or vomiting Musculoskeletal Musculoskeletal: Denies arthralgias or myalgias Integumentary Denies rash Neurologic Neurologic: Denies paresthesias or weakness Hematologic/Lymphatic Hematologic/Lymphatic: Reports easy bleeding, easy bruising and other Details: on coumadin EXAM Physical Exam Const Vital Signs: 05/04/24 09:17 05/04/24 09:34 05/04/24 10:44 Temperature 98 F Temperature Source Oral Pulse Rate 73 64 Respiratory Rate 16 14 Respiratory Effort Normal Non-Labored Respiratory Pattern Normal Blood Pressure 110/80 104/71 Blood Pressure Mean 90 82 Pulse Ox 99 97 Oxygen Delivery Method Room Air Room Air 05/04/24 10:44 05/04/24 11:00 05/04/24 12:00 Temperature Temperature Source Pulse Rate 63 62 Respiratory Rate 18 15 Respiratory Effort Respiratory Pattern Blood Pressure 114/71 117/83 H Blood Pressure Mean 85 94 Pulse Ox 98 Oxygen Delivery Method Room Air Room Air 05/04/24 13:00 05/04/24 14:00 Temperature Temperature Source Pulse Rate 73 78 Respiratory Rate 18 16 Respiratory Effort Respiratory Pattern Blood Pressure 110/78 127/78 H Blood Pressure Mean 88 94 Pulse Ox 98 98 Oxygen Delivery Method Room Air Room Air Positive well nourished and well developed General Appearance ED: well developed and NAD HEENT Reports moist mucous membranes normocephalic and atraumatic Eyes PERRL Neck supple and no JVD Chest Wall inspection of chest normal and palpation of chest normal Chest: Negative for tenderness Resp normal respiratory effort and clear to auscultation bilaterally Cardio regular rate and regular rhythm Peripheral Pulses: pulses 2+ throughout GI normal to inspection, nondistended, normoactive bowel sounds and soft to palpation Extremity normal to inspection General Extremety ED: Negative for edema General Extremity: Negative for edema Neuro oriented x3 Sensorium / Orientation: awake and alert Motor Exam: Negative for general weakness Psych mental status grossly normal Skin no rashes or lesions noted Heart Score History: Slightly/Non-Suspicious ECG: Normal Age: >/= 65 years Risk Factors: >/= 3 Risk Factors or History of CAD Troponin: </= Normal Limit Score: 4 MDM MDM MDM Narrative Medical decision making narrative: Patient evaluated for intermittent chest pain. Patient currently chest pain- free. He appears nontoxic no acute distress. Differential includes was not limited to ACS, arrhythmia, pneumonia, pneumothorax. Lower sufficient for PE as patient is on chronic Coumadin therapy but will check an INR. Recently had what sounds like viral syndrome possibly had COVID. Given that he is improving is not have any respiratory symptoms at this time I do not think COVID test is n eeded. Workup is largely negative. Delta high-sensitivity troponin is normal at 7 and then 6. CBC is largely normal as well as his BMP. He does have an elevation of his creatinine of 1.65 however this appears to be his baseline. His INR is therapeutic at 3.0. Two-view chest x-ray viewed by myself as well as radiology does not show any acute process but does show moderate-sized hiatal hernia. Patient is pain-free. Will be discharged home with return precautions and follow-up instructions with his primary care doctor. He verbalized agreement understand this plan. Discharged home in stable condition. Lab Data Attestation: I reviewed the patient's lab results. Labs: Laboratory Results - last 24 hr 05/04/24 05/04/24 09:30 13:13 WBC 4.9 RBC 4.40 L Hgb 14.2 Hct 43.7 MCV 99.3 H MCH 32.3 H MCHC 32.5 RDW Std Deviation 46.5 H RDW Coeff of Tonja 12.6 Plt Count 158 MPV 10.6 Immature Gran % (Auto) 1.800 H Neut % (Auto) 65.2 Lymph % (Auto) 21.4 Childress % (Auto) 9.2 Eos % (Auto) 1.8 Baso % (Auto) 0.6 Absolute Neuts (auto) 3.2 Absolute Lymphs (auto) 1.04 Nucleated RBC % 0 PT 30.5 H INR 3.0 Sodium 138 Potassium 4.5 Chloride 107 Carbon Dioxide 24.0 Anion Gap 7 BUN 25 H Creatinine 1.65 H Estim Creat Clear Calc 35.06 Est GFR (MDRD) Af Amer 51 L Est GFR (MDRD) Non-Af 42 L BUN/Creatinine Ratio 15.2 Glucose 122 H Calcium 8.9 Troponin I High Sens 7 6 Radiography Diagnostic Testing: Clinical Impression(s) from Imaging Studies Chest X-Ray 05/04/24 10:39 IMPRESSION: Findings suggestive for scarring at the lung bases in the right upper lobe as described. Moderate-sized hiatal hernia. Electronically Signed: Flako Dunaway MD at 11:25 EDT , Rhythm Strip Rhythm Strip: Sinus Rhythm Rate: 73 Ectopy: None and - (Intermittently paced on telemetry) EKG Initial EKG: Attestation: I personally reviewed and interpreted this EKG as follows: Interpretation: Sinus Rhythm Comments: Normal sinus rhythm at a rate of 73 bpm with first-degree AV block SD interval 236 Left axis deviation Normal QRS and QTc Normal ST segments Discharge Plan Triage Chief Complaint: Chest Pain ED Provider: Asiya Becerril Dx/Rx/DC Orders Clinical Impression: Chest pain of uncertain etiology, Anticoagulant long-term use Instructions: ED Chest Pain, Uncertain Cause Prescriptions: No Action omeprazole 20 mg capsule,delayed release(DR/EC) 20 mg PO ONCE levothyroxine 50 mcg capsule 75 mcg PO QDAY pantoprazole 40 mg tablet,delayed release (DR/EC) 40 mg PO DAILY multivitamin [Daily Multi-Vitamin] Tablet 1 tab PO DAILY metoprolol tartrate 25 mg tablet 25 mg PO BID Qty: 180 3RF warfarin 2.5 mg tablet 2.5 mg PO DAILY Qty: 90 3RF Protocol: Dose Management Condition: Saturday Dose/Route: 2.5 mg Instruction: 1 x 2.5 mg tablet Condition: Saturday Dose/Route: 2.5 mg Instruction: 1 x 2.5 mg tablet Condition: Saturday Dose/Route: 2.5 mg Instruction: 1 x 2.5 mg tablet Condition: Saturday Dose/Route: 5 mg Instruction: 2 x 2.5 mg tablets Condition: Dose/Route: 5 mg Instruction: 2 x 2.5 mg tablets Condition: Saturday Dose/Route: 5 mg Instruction: 2 x 2.5 mg tablets Condition: Saturday Dose/Route: 2.5 mg Instruction: 1 x 2.5 mg tablet Protocol Text: Adjustment Start Date: Saturday04/29/24 INR Value: 2.6 INR Date: 04/29/24 Recheck Date: 05/29/24 Rx Instructions: Take one tab (2.5mg) Sat/Sun/Sat/ and two tabs (5mg) Sat//Sat; or use as directed atorvastatin 40 mg tablet 40 mg PO DAILY Qty: 90 3RF Primary Care Provider: Jame Hebert Chi Referrals: Jame Hebert Chi, MD [Primary Care Provider] - Activity Restrictions/Additional Instructions: Your workup today was largely normal. The exact cause your symptoms is not clear at this time I feel it is safe for you to be discharged home. Your INR is therapeutic today at 3.0. You do have a hiatal hernia on your x-ray today which can cause reflux-like symptoms. I am not sure if this is related to your symptoms that are bring any went to the emergency room. Please follow-up with your primary care doctor and cardiology as needed. Return if you have a progression or worsening your symptoms. Print Language: Hungarian Disposition Disposition: Home, Self Care
[2024-05-04 12:45] LABS: Reflex Troponin-HS? (from REC) Y
[2024-05-04 14:00] LABS: Troponin-I HS 6 pg/mL (3.0-78.0)
== END 2024-05-04 14:35 | disposition home or self-care (01) ==
PROVIDERS: Emergency Provider Emergency Medicine; PCP Family Medicine Geriatric Medicine; Visit Provider Emergency Medicine
DX: R07.9 Chest pain, unspecified (principal); I48.0 Paroxysmal atrial fibrillation; Z79.01 Long term (current) use of anticoagulants; E78.5 Hyperlipidemia, unspecified; I25.10 Atherosclerotic heart disease of native coronary artery without angina pectoris; Z87.891 Personal history of nicotine dependence; Z95.3 Presence of xenogenic heart valve; Z95.0 Presence of cardiac pacemaker; E03.9 Hypothyroidism, unspecified; Z79.890 Hormone replacement therapy; Z90.49 Acquired absence of other specified parts of digestive tract; Z96.659 Presence of unspecified artificial knee joint
CPT/HCPCS: 71046; 80048; 84484; 85025; 85610; 93005; 99284; A4216

== ENCOUNTER 2024-05-28 16:00 | Outpatient (RCR) | payer MEDICARE, OTHER, SELFPAY ==
[2024-05-28 16:13] LABS: Absolute Lymphocyte Count 0.99 X10^3/uL (0.83-4.51); Absolute Neutrophil Count 4.3 X10^3/uL (2.0-7.7); Basophil# 0.03 X10^3/uL; Basophil% 0.5 % (0-1); Eosinophil# 0.11 X10^3/uL; Eosinophils% 1.8 % (0-5); Hematocrit 40.7 % (40-54); Hemoglobin 13.1 g/dL (13.0-16.5); Lymphocyte # 0.99 X10^3/ul (0.83-4.51); Lymphocyte % 16.1 % (19-41); Mean Corp Hgb Conc 32.2 g/dL (32-36); Mean Corpuscular Hgb 32.3 pg (27.0-32.0); Mean Corpuscular Volume 100.2 fL (80-94); Mean Platelet Vol. 10.4 fl (6.2-12.0); Monocyte# 0.63 X10^3/uL; Monocyte% 10.2 % (0-10); NRBC Flagged by Analyzer 0 % (0-5); Neutrophil # 4.32 X10^3/uL (2.7-7.7); Neutrophil % 70.1 % (47-70); Platelet Count 168 K/mm3 (150-450); RBC Distribution Width CV 12.6 % (11.6-14.6); RBC Distribution Width SD 46.9 fl (35.1-43.9); Red Blood Count 4.06 M/mm3 (4.6-6.2); White Blood Count 6.2 K/mm3 (4.4-11.0)
[2024-05-28 16:24] LABS: Prothrombin Time (Protime)PT. 22.3 SECONDS (11.7-14.9)
[2024-05-28 17:37] LABS: ALB/GLOB Ratio 0.8 RATIO (0.9-2.4); AST(SGOT) 21 U/L (15-37); Alanine Aminotransfer ALT/SGPT 21 U/L (16-61); Albumin, Serum 3.3 g/dL (3.2-5.0); Alkaline Phosphatase 118 U/L (45-117); Anion Gap 5 (5-15); BUN 28 mg/dL (7-18); BUN/Creat Ratio 12.2 RATIO (10-20); Calcium,Total 9.2 mg/dL (8.5-10.1); Chloride 107 mmol/L (98-107); EST Glomerular Filtration Rate 29 mL/min (>60); Est Glom Filt Rate - Afr Amer 35 mL/min (>60); Globulin 4.3 g/dL (2.2-4.2); Glucose 106 mg/dL (74-106); Potassium 4.8 mmol/L (3.5-5.1); Protein, Total 7.6 g/dL (6.4-8.2); Sodium Level 136 mmol/L (136-145)
[2024-05-29 23:05] LABS: Vitamin D,25 Hydroxy 25.3 ng/mL
== END 2024-05-28 18:00 | disposition home or self-care (01) ==
LOC: LAB 16:00
PROVIDERS: PCP Family Medicine Geriatric Medicine; Referring Provider Physician Assistant Medical; Visit Provider Physician Assistant Medical
DX: I48.0 Paroxysmal atrial fibrillation (principal); Z79.01 Long term (current) use of anticoagulants; I10 Essential (primary) hypertension; E55.9 Vitamin D deficiency, unspecified
CPT/HCPCS: 36415; 80053; 82306; 84443; 85025; 85610

== ENCOUNTER 2024-05-30 14:34 | Emergency (ER) | payer MEDICARE, OTHER, SELFPAY ==
[2024-05-30 14:35] VITALS: BP 119/73; PULSE 86; RESP 18; TEMP 36.6; O2SAT 95
[2024-05-30 14:41] VITALS: BMI 28.6
--- NOTE | 2024-05-30 16:23 | EKG12_ITS ---
Test Reason : Blood Pressure : / mmHG Vent. Rate : 077 BPM Atrial Rate : 077 BPM P-R Int : 246 ms QRS Dur : 074 ms QT Int : 324 ms P-R-T Axes : 009 -25 -20 degrees QTc Int : 366 ms Sinus rhythm with 1st degree A-V block Otherwise normal ECG Confirmed by Braulio Bobo ([id number]), health editor BAYLEE BRINK ([id number]) on 06/01/2024 11:30:12 AM Referred By: Feng Varma Confirmed By:Braulio Bobo
--- NOTE | 2024-05-30 16:23 | CT_ITS ---
We are attempting to reach an attending provider to discuss findings. An addendum with communication details will be sent when the communication is complete. INDICATION: headache, increased confusion and sleepiness EXAMINATION: CT BRAIN - CT Head or Brain W/O Contrast Injection TECHNIQUE: Multiple axial images were obtained of the head without intravenous contrast. A radiation dose optimization technique was used for this scan. IV Contrast dosage and agent: None. 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 Significant mass effect with 1.5 cm midline shift right to left and uncal herniation. No evidence of acute infarct. Posterior fossa structures are unremarkable. CSF SPACES: No hydrocephalus. Basal cisterns are patent. CALVARIUM, SKULL BASE, PARANASAL SINUSES AND MASTOID AIR CELLS: Clear. No discrete lytic or blastic abnormalities. ORBITS: Both globes, extraocular muscles, optic nerves and retrobulbar fat appear unremarkable. 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 Electronically Signed: Lake Moore MD at 18:07 EDT ,
--- NOTE | 2024-05-30 16:24 | EX.ED.DYSGE1 ---
HPI History of Present Illness Chief Complaint: Weakness Detail of Chief Complaint: Generalized weakness and increased sleep Informant: patient, spouse/S.O. and family Narrative Narrative: Patient brought to the emergency department with complaint of not feeling well and generally weak. Patient had a fall early this morning around 3 AM where he fell in the bathroom because he felt off balance. He denies tracking his head or injury. had a hard time get him up but they were able to get him in the bed. Patient was seen by his primary care physician yesterday because he is not been feeling well for the last 3 weeks. Patient complained of pain in his head on May 16. Since then he has been sleeping 12 to 14 hours a day which is unusual. He denies any fevers or chills or sweats although April 27 he had a cough for about a week. Seen by primary care physician yesterday and apparently had a urinalysis and they checked residual urine in the bladder and he was started on Flomax yesterday. 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 Postoperative atrial fibrillation Hyperlipidemia Hypothyroidism Nonrheumatic aortic (valve) stenosis Thoracic aortic aneurysm Barretts esophagus Arthritis PSVT (paroxysmal supraventricular tachycardia) Home Medications ?Medication ?Instructions ?Recorded ?Last Taken ?Type omeprazole 20 mg capsule,delayed 20 mg PO ONCE 07/15/17 Unknown History release multivitamin (Daily Multi-Vitamin 1 tab PO DAILY 01/09/23 Unknown History tablet) pantoprazole 40 mg tablet,delayed 40 mg PO DAILY 01/09/23 Unknown History release levothyroxine 50 mcg capsule 75 mcg PO QDAY 09/11/23 Unknown History metoprolol tartrate 25 mg tablet 25 mg PO BID #180 tabs 09/11/23 Unknown Rx warfarin 2.5 mg tablet 2.5 mg PO DAILY #90 tabs 11/25/23 Unknown Rx atorvastatin 40 mg tablet 40 mg PO DAILY #90 tabs 12/25/23 Unknown Rx tamsulosin 0.4 mg capsule 0.4 mg PO DAILY 05/30/24 Unknown History Allergy/AdvReac Type Severity Reaction Status Date / Time No Known Allergies Allergy Verified 05/30/24 14:41 Surgical History S/P left atrial appendage ligation (08/08/22) 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/08/22) H/O aortic valve replacement (08/08/22) History of endoscopy (09/08/18) History of left heart catheterization (09/08/07) History of radiofrequency ablation procedure for cardiac arrhythmia (09/24/07) History of appendectomy Inguinal hernia Total knee replacement status (~2003) Social History Smoking Status: Former smoker pack-years: 20 alcohol intake: current alcohol intake frequency: holidays/special occasions only ROS ROS ED Review of Systems ROS Unobtainable: other Constitutional Constitutional ED: Reports lethargy; Denies chills, fever(s), sweats or weight loss Eyes Eyes: Denies blurry vision, change in vision or diplopia ENT ENT ED: Denies rhinorrhea or sore throat Cardiovascular Cardiovascular: Denies chest pain, orthopnea or racing heartbeat Respiratory/Chest Respiratory/Chest: Reports cough; Denies dyspnea, dyspnea on exertion, orthopnea or sputum Gastrointestinal Gastrointestinal: Denies abdominal pain, diarrhea, nausea or vomiting Genitourinary Genitourinary ED: Denies dysuria, hematuria or urinary frequency Musculoskeletal Musculoskeletal: Denies arthralgias, back pain, myalgias or neck pain Integumentary Denies abscess, Abrasions or rash Neurologic Neurologic: Reports headache(s), weakness and other Details: Increase sleep Psychiatric Psychiatric: Denies anxiety, depression or suicidal thoughts Endocrine Endocrinology: Denies polydipsia, polyphagia or polyuria Hematologic/Lymphatic Hematologic/Lymphatic: Denies easy bleeding, easy bruising or lymphadenopathy Allergic/Immunologic Allergic/Immunologic ED: Denies mouth swelling, tongue swelling or urticaria EXAM Physical Exam Const Vital Signs: 05/30/24 14:35 05/30/24 15:52 05/30/24 16:34 Temperature 97.9 F Temperature Source Oral Pulse Rate 86 80 Respiratory Rate 18 25 H Respiratory Effort Normal Non-Labored Respiratory Pattern Normal Blood Pressure 119/73 114/78 Blood Pressure Mean 88 90 Pulse Ox 95 97 05/30/24 18:00 Temperature Temperature Source Pulse Rate 88 Respiratory Rate 18 Respiratory Effort Respiratory Pattern Blood Pressure 111/78 Blood Pressure Mean 89 Pulse Ox 95 Positive well nourished and well developed General Appearance ED: well developed and NAD HEENT Reports TM's clear and moist mucous membranes normocephalic and atraumatic; Negative for trauma or tenderness Tympanic Membrane ED: Yes TM's clear Eyes PERRL and EOMs intact bilaterally General Eye ED: Negative for pale conjunctiva or scleral icterus Neck no lymphadenopathy, supple and no JVD General: Negative for tenderness Chest Wall inspection of chest normal and palpation of chest normal Chest: Negative for tenderness Resp normal respiratory effort and clear to auscultation bilaterally Effort and Inspection: Negative for respiratory distress or pain with movement Auscultation: Negative for rhonchi, wheezes or diminished lung sounds Cardio regular rate, regular rhythm, S1 normal heart sound, S2 normal heart sound and no murmurs Peripheral Pulses: pulses 2+ throughout GI normal to inspection, nondistended, normoactive bowel sounds, soft to palpation, non-tender, non-distended and no masses Back/Spine no CVA tenderness and no thoracic nor lumbar tenderness Extremity normal to inspection General Extremety ED: Negative for edema General Extremity: Negative for edema Neuro oriented x3, CN's II-XII intact bilaterally, no sensory deficits noted and gait normal Sensorium / Orientation: awake, alert, oriented to person, oriented to place and oriented to time Motor Exam: strength 5/5 throughout and strength abnormal Psych mental status grossly normal Skin no rashes or lesions noted and no wounds MDM MDM MDM Narrative Medical decision making narrative: Patient presents with increased confusion and a headache that started about 2 weeks ago. He has been feeling off balance and had a fall this morning. In the differential would be intracranial hemorrhage with Coumadin coagulopathy. Patient also has infectious etiology in the differential. IV line established. 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 CBC with differential was essentially unremarkable. Chemistries unremarkable. INR was 2.3. Discussed case with patient and family members and will transfer to [facility]. Discussed case with [facility] emergency room physician Dr. Robles. We will reverse him with vitamin K and Kcentra. Patient will be sent via helicopter to their facility. Lab Data Attestation: I reviewed the patient's lab results. Labs: Laboratory Results - last 24 hr 05/30/24 05/30/24 16:35 17:15 WBC 6.2 RBC 4.34 L Hgb 14.1 Hct 43.3 MCV 99.8 H MCH 32.5 H MCHC 32.6 RDW Std Deviation 45.3 H RDW Coeff of Tonja 12.4 Plt Count 160 MPV 10.3 Immature Gran % (Auto) 1.100 H Neut % (Auto) 75.6 H Lymph % (Auto) 12.3 L [place] % (Auto) 9.2 Eos % (Auto) 1.3 Baso % (Auto) 0.5 Absolute Neuts (auto) 4.7 Absolute Lymphs (auto) 0.76 L Nucleated RBC % 0 PT 25.3 H INR 2.3 Sodium 138 Potassium 4.3 Chloride 107 Carbon Dioxide 25.0 Anion Gap 6 BUN 27 H Creatinine 1.59 H Estim Creat Clear Calc 36.58 Est GFR (MDRD) Af Amer 53 L Est GFR (MDRD) Non-Af 44 L BUN/Creatinine Ratio 17.0 Glucose 124 H Calcium 8.9 Total Bilirubin 1.20 H AST 19 ALT 22 Alkaline Phosphatase 133 H Troponin I High Sens 7 Total Protein 7.7 Albumin 3.5 Globulin 4.2 Albumin/Globulin Ratio 0.8 L Urine Color Yellow Urine Clarity Clear Urine pH 6.0 Ur Specific [place] 1.020 Urine Protein 15 H Urine Glucose (UA) Normal Urine Ketones Negative Urine Occult Blood 10 H Urine Nitrite Negative Urine Bilirubin Negative Urine Urobilinogen Normal Ur Leukocyte Esterase Negative Urine RBC 0 SEEN Urine WBC 0 SEEN Ur Squamous Epith Cells 0-5 SEEN Urine Bacteria RARE Urine Mucus RARE Radiography Diagnostic Testing: Clinical Impression(s) from Imaging Studies Brain CT 05/30/24 16:23 IMPRESSION: 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 Electronically Signed: Lake Moore MD at 18:07 EDT Reading Location ID and State: [facility] / [place] Tel , Service support , Chest X-Ray 05/30/24 17:18 IMPRESSION: Patchy infiltrate left lower lung field consistent with pneumonia. Recommend follow-up to complete resolution. Electronically Signed: Lake Moore MD at 17:49 EDT Reading Location ID and State: [facility] / [place] Tel , Service support , 1 view chest x-ray obtained interpreted by myself is no evidence of infiltrate or pneumothorax or acute disease process. Radiology felt there was patchy infiltrate left lower lung field consistent with pneumonia. 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, Discussing w/Consultants, Arranging Admission or Transfer, Performing Direct Patient Care at Bedside and - (40 minutes) Discharge Plan Triage Chief Complaint: Weakness ED Provider: Feng Varma Dx/Rx/DC Orders Clinical Impression: Intracranial hemorrhage, Altered mental status, History of atrial fibrillation Prescriptions: No Action omeprazole 20 mg capsule,delayed release(DR/EC) 20 mg PO ONCE levothyroxine 50 mcg capsule 75 mcg PO QDAY pantoprazole 40 mg tablet,delayed release (DR/EC) 40 mg PO DAILY multivitamin [Daily Multi-Vitamin] Tablet 1 tab PO DAILY metoprolol tartrate 25 mg tablet 25 mg PO BID Qty: 180 3RF tamsulosin 0.4 mg capsule 0.4 mg PO DAILY warfarin 2.5 mg tablet 2.5 mg PO DAILY Qty: 90 3RF Protocol: Dose Management Condition: Saturday Dose/Route: 2.5 mg Instruction: 1 x 2.5 mg tablet Condition: Saturday Dose/Route: 2.5 mg Instruction: 1 x 2.5 mg tablet Condition: Saturday Dose/Route: 2.5 mg Instruction: 1 x 2.5 mg tablet Condition: Saturday Dose/Route: 5 mg Instruction: 2 x 2.5 mg tablets Condition: Dose/Route: 5 mg Instruction: 2 x 2.5 mg tablets Condition: Saturday Dose/Route: 5 mg Instruction: 2 x 2.5 mg tablets Condition: Saturday Dose/Route: 2.5 mg Instruction: 1 x 2.5 mg tablet Protocol Text: Adjustment Start Date: 10/17/24 INR Value: 2.0 INR Date: 05/28/24 Recheck Date: 06/27/24 Rx Instructions: Take one tab (2.5mg) Sat/Sun/Sat/ and two tabs (5mg) Sat//Sat; or use as directed atorvastatin 40 mg tablet 40 mg PO DAILY Qty: 90 3RF Primary Care Provider: Jame Hebert Chi Referrals: Jame Hebert Chi, MD [Primary Care Provider] - Print Language: [place] Leonean Disposition Disposition: DC/Tx to Another Type of HCF
[2024-05-30 16:34] VITALS: BP 114/78; PULSE 80; RESP 25; O2SAT 97
[2024-05-30 16:52] LABS: Absolute Lymphocyte Count 0.76 X10^3/uL (0.83-4.51); Absolute Neutrophil Count 4.7 X10^3/uL (2.0-7.7); Basophil# 0.03 X10^3/uL; Basophil% 0.5 % (0-1); Eosinophil# 0.08 X10^3/uL; Eosinophils% 1.3 % (0-5); Hematocrit 43.3 % (40-54); Hemoglobin 14.1 g/dL (13.0-16.5); Lymphocyte # 0.76 X10^3/ul (0.83-4.51); Lymphocyte % 12.3 % (19-41); Mean Corp Hgb Conc 32.6 g/dL (32-36); Mean Corpuscular Hgb 32.5 pg (27.0-32.0); Mean Corpuscular Volume 99.8 fL (80-94); Mean Platelet Vol. 10.3 fl (6.2-12.0); Monocyte# 0.57 X10^3/uL; Monocyte% 9.2 % (0-10); NRBC Flagged by Analyzer 0 % (0-5); Neutrophil # 4.67 X10^3/uL (2.7-7.7); Neutrophil % 75.6 % (47-70); Platelet Count 160 K/mm3 (150-450); RBC Distribution Width CV 12.4 % (11.6-14.6); RBC Distribution Width SD 45.3 fl (35.1-43.9); Red Blood Count 4.34 M/mm3 (4.6-6.2); White Blood Count 6.2 K/mm3 (4.4-11.0)
[2024-05-30 17:09] LABS: ALB/GLOB Ratio 0.8 RATIO (0.9-2.4); AST(SGOT) 19 U/L (15-37); Alanine Aminotransfer ALT/SGPT 22 U/L (16-61); Albumin, Serum 3.5 g/dL (3.2-5.0); Alkaline Phosphatase 133 U/L (45-117); Anion Gap 6 (5-15); BUN 27 mg/dL (7-18); Calcium,Total 8.9 mg/dL (8.5-10.1); Chloride 107 mmol/L (98-107); Creatinine, Serum 1.59 mg/dL (0.70-1.30); EST Glomerular Filtration Rate 44 mL/min (>60); Est Glom Filt Rate - Afr Amer 53 mL/min (>60); Estimated Creatinine Clearance 36.58 ml/min; Globulin 4.2 g/dL (2.2-4.2); Glucose 124 mg/dL (74-106); Potassium 4.3 mmol/L (3.5-5.1); Protein, Total 7.7 g/dL (6.4-8.2); Sodium Level 138 mmol/L (136-145); Troponin-I HS 7 pg/mL (3.0-78.0)
--- NOTE | 2024-05-30 17:18 | RAD_ITS ---
INDICATION: cough EXAMINATION/TECHNIQUE: X-RAY - portable upright AP chest x-ray COMPARISON: 05/04/2024 FINDINGS: LINES/DEVICES: Stable transvenous pacemaker. LUNGS: Patchy opacity left lower lung field medially. No consolidation or pleural effusion. MEDIASTINUM AND CARDIOVASCULAR STRUCTURES: Cardiac silhouette stable within normal limits with stable CABG changes. BONES AND SOFT TISSUES: No acute changes. RAD/Chest 1 View (Portable) IMPRESSION: Patchy infiltrate left lower lung field consistent with pneumonia. Recommend follow-up to complete resolution. Electronically Signed: Lake Moore MD at 17:49 EDT ,
[2024-05-30 17:21] LABS: Red Blood Cells-Urine 0 SEEN /hpf (0-5); White Blood Cells 0 SEEN /hpf (0-5)
[2024-05-30 17:28] LABS: Color, Urine Yellow (Yellow); Glucose, Dipstick Normal (Normal); Ketone-Dipstick Negative (Negative); Leukocyte Esterase-Dipstick Negative /ul (Negative); Nitrite-Dipstick Negative (Negative); Occult Blood-Urine 10 /ul (Negative); Protein-Dipstick 15 mg/dl (Negative); Urine Bilirubin Dipstick Negative (Negative); Urine Clarity Clear (Clear); Urine Urobilinogen Normal (Normal)
[2024-05-30 17:33] LABS: Bacteria RARE /hpf (None Seen); Mucous, Urine RARE /hpf (<or=2+); Squamous Epithelial Cells - UA 0-5 SEEN /hpf (0-5)
[2024-05-30 17:37] LABS: International Normalized Ratio 2.3; Prothrombin Time (Protime)PT. 25.3 SECONDS (11.7-14.9)
[2024-05-30 18:00] VITALS: BP 111/78; PULSE 88; RESP 18; O2SAT 95
[2024-05-30] MEDS: Phytonadione (Vit K) 10 MG in 0.9% Normal Saline (50mL Bag) 50 ML 153 MG IV (19:03)
[2024-05-30] MEDS: HUM PROTHROMBIN CPLX(PCC)-LANS 2,160 UNIT in Viaflex Bag 1 BAG 500 UNIT IV (19:07)
[2024-05-30 19:13] VITALS: BP 111/78; PULSE 88; RESP 18; TEMP 36.8; O2SAT 95
== END 2024-05-30 19:24 | disposition other institution (70) ==
PROVIDERS: Emergency Provider Emergency Medicine; PCP Family Medicine Geriatric Medicine; Referring Provider Emergency Medicine; Visit Provider Emergency Medicine
DX: R53.1 Weakness (principal); I48.0 Paroxysmal atrial fibrillation; S06.5XAA Traumatic subdural hemorrhage with loss of consciousness status unknown, initial encounter; E78.5 Hyperlipidemia, unspecified; R51.9 Headache, unspecified; R41.82 Altered mental status, unspecified; Z87.891 Personal history of nicotine dependence; Z79.01 Long term (current) use of anticoagulants; Z95.0 Presence of cardiac pacemaker; E03.9 Hypothyroidism, unspecified; Z79.890 Hormone replacement therapy; Z95.2 Presence of prosthetic heart valve; Z90.49 Acquired absence of other specified parts of digestive tract; Z96.659 Presence of unspecified artificial knee joint; W18.30XA Fall on same level, unspecified, initial encounter
CPT/HCPCS: 70450; 71045; 80053; 81001; 84484; 85025; 85610; 93005; 96365; 96375; 99285; A4216; C9159; J3490

== ENCOUNTER → 2024-08-06 | Outpatient (CLI) | payer MEDICARE, OTHER, SELFPAY ==
--- NOTE | 2024-08-06 14:17 | RAD_ITS ---
STUDY: X-RAY CHEST REASON FOR EXAM: Male, 89 years old. DYSPNEA TECHNIQUE: PA and lateral views of the chest. COMPARISON: 05/30/2024 FINDINGS: Left subclavian pacemaker which is unchanged. Status post median sternotomy with valve replaced. The lungs are clear and expanded. There is no demonstrated pleural abnormality. There is moderate cardiac enlargement. Moderate-sized hiatal hernia with an air-fluid level. Normal visualized pulmonary arteries. Normal visualized aortic arch and descending thoracic aorta. Normal visualized thoracic spine. Normal visualized ribs, clavicles, and shoulders. There is no demonstrated abnormality of the visualized soft tissue structures of the upper abdomen. RAD/Chest PA and Lateral IMPRESSION: No change from 05/30/2024. Electronically Signed: Nathaniel Arias MD at 14:44 EST ,
[2024-08-06 17:44] LABS: Absolute Lymphocyte Count 1.22 X10^3/uL (0.83-4.51); Absolute Neutrophil Count 1.9 X10^3/uL (2.0-7.7); Basophil# 0.02 X10^3/uL; Basophil% 0.6 % (0-1); Eosinophil# 0.06 X10^3/uL; Eosinophils% 1.7 % (0-5); Hematocrit 41.3 % (40-54); Hemoglobin 12.8 g/dL (13.0-16.5); Lymphocyte # 1.22 X10^3/ul (0.83-4.51); Lymphocyte % 34.5 % (19-41); Mean Corpuscular Hgb 30.9 pg (27.0-32.0); Mean Corpuscular Volume 99.8 fL (80-94); Mean Platelet Vol. 10.6 fl (6.2-12.0); Monocyte# 0.31 X10^3/uL; Monocyte% 8.8 % (0-10); NRBC Flagged by Analyzer 0 % (0-5); Neutrophil # 1.85 X10^3/uL (2.7-7.7); Neutrophil % 52.1 % (47-70); Platelet Count 152 K/mm3 (150-450); RBC Distribution Width CV 12.5 % (11.6-14.6); Red Blood Count 4.14 M/mm3 (4.6-6.2); White Blood Count 3.5 K/mm3 (4.4-11.0)
[2024-08-06 18:13] LABS: ALB/GLOB Ratio 0.7 RATIO (0.9-2.4); AST(SGOT) 19 U/L (15-37); Alanine Aminotransfer ALT/SGPT 20 U/L (16-61); Albumin, Serum 3.1 g/dL (3.2-5.0); Alkaline Phosphatase 132 U/L (45-117); Anion Gap 6 (5-15); BUN 21 mg/dL (7-18); BUN/Creat Ratio 11.8 RATIO (10-20); Calcium,Total 8.4 mg/dL (8.5-10.1); Chloride 109 mmol/L (98-107); Creatinine, Serum 1.78 mg/dL (0.70-1.30); EST Glomerular Filtration Rate 39 mL/min (>60); Est Glom Filt Rate - Afr Amer 47 mL/min (>60); Globulin 4.4 g/dL (2.2-4.2); Glucose 142 mg/dL (74-106); Potassium 4.3 mmol/L (3.5-5.1); Protein, Total 7.5 g/dL (6.4-8.2); Sodium Level 140 mmol/L (136-145)
== END | disposition home or self-care (01) ==
PROVIDERS: PCP Family Medicine; Referring Provider Family Medicine; Visit Provider Family Medicine
DX: R06.00 Dyspnea, unspecified (principal); E03.9 Hypothyroidism, unspecified; Z51.81 Encounter for therapeutic drug level monitoring
CPT/HCPCS: 36415; 71046; 80053; 84443; 85025; 85379

== ENCOUNTER → 2024-08-07 | Outpatient (CLI) | payer MEDICARE, OTHER, SELFPAY ==
--- NOTE | 2024-08-07 16:13 | CT_ITS ---
INDICATION: DYSPNEA ON EXERTION EXAMINATION: CTA Chest WO/W Contrast Injection TECHNIQUE: Helically acquired images were obtained of the chest following administration of IV contrast. A radiation dose optimization technique was used for this scan. 3D postprocessing images including MIPS were reviewed. IV Contrast dosage and agent: IV 100mL [id number] COMPARISON: None. FINDINGS: Lungs: Scattered subsegmental atelectasis. Mediastinum: The heart is mildly enlarged. There is mediastinal lymphadenopathy. Mild aortic arch and coronary artery calcifications. No obvious filling defect seen within the visualized pulmonary arteries. Pleura: Unremarkable Bones/Soft tissues: There are diffuse degenerative changes of the spine. Upper abdomen: Large hiatal hernia. CT/CTA Chest W/WO Contrast IMPRESSION: No acute abnormalities in the chest. Specifically, no evidence of acute pulmonary emboli to the segmental level. Large hiatal hernia. Electronically Signed: Candido Farias MD at 17:36 EST ,
== END | disposition home or self-care (01) ==
LOC: CT 16:09
PROVIDERS: PCP Family Medicine; Referring Provider Family Medicine; Visit Provider Family Medicine
DX: R06.09 Other forms of dyspnea (principal); R09.89 Other specified symptoms and signs involving the circulatory and respiratory systems
CPT/HCPCS: 71275; Q9967

== ENCOUNTER → 2024-09-08 | Outpatient (CLI) | payer MEDICARE, OTHER, SELFPAY ==
--- NOTE | 2024-09-08 07:38 | ECHOD_ITS ---
Reason For Study: Dyspnea/SOB Procedure This was a 2D Doppler, Color Flow transthoracic echocardiogram. Exam performed in department. Left Ventricle Normal LV size. The left ventricular ejection fraction is 55 %. No regional wall motion abnormalities noted. Right Ventricle Normal RV size. ICD or pacer leads identified within the right ventricle. Normal systolic function. Atria Normal left atrium. Normal right atrium. Tricuspid Valve Normal tricuspid valve. Mild to moderate (1-2+) tricuspid valve insufficiency. Pulmonary artery systolic pressure is 32 mmHg. Aortic Valve Peak aortic valve gradient 6 mmHg. Bioprosthetic aortic valve. Pulmonic Valve The pulmonic valve is not well visualized. Great Vessels Normal aortic root. The pulmonary artery is normal size. Inferior vena cava collapse with respiration. Pericardium/Pleural No pericardial effusion. MMode/2D Measurements & Calculations LVIDd: 4.0 cm IVSd: 1.2 cm LVOT diam: 2.1 cm LVIDs: 2.3 cm LVPWd: 1.0 cm LVOT area: 3.4 cm2 RVDd: 4.1 cm FS: 42.5 % Ao root diam: 3.6 cm LAV(MOD-bp): 73.6 ml LVAd ap4: 19.8 cm2 LAV(MOD-bp) Indexed: 36.8 ml/m2 LVLd ap4: 6.6 cm LAV(MOD-sp2): 67.1 ml EDV(MOD-sp4): 49.1 ml LAV(MOD-sp4): 71.8 ml EDV(sp4-el): 50.2 ml LVAs ap4: 12.3 cm2 LVLs ap4: 6.1 cm ESV(MOD-sp4): 22.6 ml ESV(sp4-el): 21.3 ml EF(MOD-sp4): 54.0 % EF(sp4-el): 57.7 % SV(MOD-sp4): 26.5 ml SV(sp4-el): 29.0 ml Ao sinus diam: 3.9 cm SI(MOD-sp4): 13.3 ml/m2 Ao ST Junction: 3.2 cm LA A4 area: 22.5 cm2 LA dimension(2D): 3.2 cm RA A4 area: 22.9 cm2 TAPSE: 2.0 cm Time Measurements MV dec time: 0.16 sec Doppler Measurements & Calculations MV E max justen: 115.9 cm/sec Lat Peak E' Justen: 15.0 cm/sec Med Peak E' Justen: 8.7 cm/sec MV A max justen: 55.1 cm/sec E/E' lat: 7.7 E/E' med: 13.3 MV E/A: 2.1 MV V2 max: 103.0 cm/sec MV P1/2t max justen: 105.1 cm/sec Ao V2 max: 127.7 cm/sec MV max P.2 mmHg MV P1/2t: 48.7 msec Ao max P.5 mmHg MV V2 mean: 61.2 cm/sec MV dec slope: 631.6 cm/sec2 Ao V2 mean: 87.1 cm/sec MV mean P.8 mmHg MVA(P1/2t): 4.5 cm2 Ao mean P.5 mmHg MV V2 VTI: 27.9 cm Ao V2 VTI: 26.9 cm MVA(VTI): 2.1 cm2 AV (velocity ratio): 0.63 KATIUSKA(I,D): 2.1 cm2 KATIUSKA(V,D): 2.3 cm2 LV V1 max: 87.7 cm/sec SV(LVOT): 57.4 ml PA V2 max: 91.8 cm/sec LV V1 max P.1 mmHg PA V2 mean: 63.4 cm/sec LV V1 mean P.7 mmHg LV V1 mean: 60.8 cm/sec LV V1 VTI: 16.9 cm TR max justen: 265.1 cm/sec TR max P.1 mmHg ECHO/Echo Complete Interpretation Summary The left ventricular ejection fraction is 55 %. Normal LV size. Bioprosthetic aortic valve. Pulmonary artery systolic pressure is 32 mmHg. Ordering Physician: Sarah Abdi Referring Physician: Henry Collado Performed By: Jack Adams RCS
== END | disposition home or self-care (01) ==
LOC: CVS 07:34
PROVIDERS: PCP Family Medicine; Referring Provider Physician Assistant Medical; Visit Provider Physician Assistant Medical
DX: R06.09 Other forms of dyspnea (principal); R06.02 Shortness of breath
CPT/HCPCS: 93306

== ENCOUNTER → 2024-09-15 | Outpatient (CLI) | payer MEDICARE, OTHER, SELFPAY ==
[2024-09-15 20:45] LABS: BNP,B-Type NATRIURETIC PEPTIDE 131.3 pg/mL (0-100)
== END | disposition home or self-care (01) ==
LOC: LAB 13:49
PROVIDERS: PCP Family Medicine; Referring Provider Physician Assistant Medical; Visit Provider Physician Assistant Medical
DX: R06.09 Other forms of dyspnea (principal)
CPT/HCPCS: 36415; 83880

== ENCOUNTER 2024-10-02 10:55 | Emergency (ER) | payer MEDICARE, OTHER, SELFPAY ==
[2024-10-02 10:56] VITALS: BP 115/82; PULSE 70; RESP 14; TEMP 36.6; O2SAT 98
--- NOTE | 2024-10-02 11:25 | CT_ITS ---
EXAM: CT BRAIN WITHOUT CONTRAST CLINICAL HISTORY: TRAUMA. PATIENT FELL. HISTORY OF SUBDURAL HEMATOMAS. BILATERAL CRANIOTOMIES. COMPARISON: CT BRAIN DATED 05/30/2024. TECHNIQUE: Contiguous axial scans of 3.75 mm slice thicknesses with sagittal and coronal reconstruction images. One or more dose reduction techniques were utilized (e.g., automated exposure control, adjustment of mA and/or kv according to patient size, use of iterative reconstruction technique). FINDINGS: No intraparenchymal hemorrhage. Left frontal lobe and left occipital lobe encephalomalacia, axial image 21 and 28.. No mass effect or midline shift. Periventricular, central white matter, and subcortical parenchymal hypoattenuation. Ventricles and cisterns are appropriate size for patient's age. An 7 mm hypoattenuating crescent-shaped area along the right posterior cerebral convexity. An 8 mm hypoattenuating crescent-shaped collection along the left cerebral convexity. Cerebellum and posterior fossa unremarkable. Paranasal sinuses normal. Mastoid air cells are normal. Bilateral craniotomy defects. Mild right frontal soft tissue swelling CT/Brain/Head without Contrast IMPRESSION: 1. Hypoattenuating areas along both cerebral convexities most likely residual from previous subdural hemorrhage. No signs of acute subdural hemorrhage. 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 2. Bilateral craniotomy defects. 3. Mild right frontal scalp hematoma. 4. Age-related central white matter microvascular ischemic changes. Reading Location: [facility]
--- NOTE | 2024-10-02 11:30 | EX.ED.GENINJ ---
HPI History of Present Illness Chief Complaint: Head Injury Informant: patient and spouse/S.O. 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 There was no loss of consciousness. He denies having a headache then or now or nausea/vomiting or any focal neurologic symptoms or changes in his vision, but today the hematoma that was there is gone and he has a big black right eye and his brought him out of concern because in May of this past year, he had bilateral craniotomy because of atraumatic subdural hematomas while he was on warfarin for A-fib which he now is off of it and on no antiplatelet or anticoagulants. 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 Postoperative atrial fibrillation Hyperlipidemia Hypothyroidism Nonrheumatic aortic (valve) stenosis Thoracic aortic aneurysm Barretts esophagus Arthritis PSVT (paroxysmal supraventricular tachycardia) Home Medications ?Medication ?Instructions ?Recorded ?Last Taken ?Type omeprazole 20 mg capsule,delayed 20 mg PO ONCE 07/15/17 Unknown History release multivitamin (Daily Multi-Vitamin 1 tab PO DAILY 01/09/23 Unknown History tablet) pantoprazole 40 mg tablet,delayed 40 mg PO DAILY 01/09/23 Unknown History release levothyroxine 50 mcg capsule 75 mcg PO QDAY 09/11/23 Unknown History metoprolol tartrate 25 mg tablet 25 mg PO BID #180 tabs 09/11/23 Unknown Rx atorvastatin 40 mg tablet 40 mg PO DAILY #90 tabs 12/25/23 Unknown Rx tamsulosin 0.4 mg capsule 0.4 mg PO DAILY 05/30/24 Unknown History Allergy/AdvReac Type Severity Reaction Status Date / Time No Known Allergies Allergy Verified 10/02/24 10:56 Surgical History S/P left atrial appendage ligation (08/08/22) 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/08/22) H/O aortic valve replacement (08/08/22) History of endoscopy (09/08/18) History of left heart catheterization (09/08/07) History of radiofrequency ablation procedure for cardiac arrhythmia (09/24/07) History of appendectomy Inguinal hernia Total knee replacement status (~2003) Social History Smoking Status: Former smoker pack-years: 20 alcohol intake: current alcohol intake frequency: holidays/special occasions only ROS ROS ED Constitutional Constitutional ED: Denies chills or fever(s) Eyes Eyes: Denies change in vision or diplopia ENT ENT ED: Reports other Details: Sore right forehead no other symptoms ; Denies rhinorrhea or sore throat Cardiovascular Cardiovascular: Denies chest pain or palpitations Respiratory/Chest Respiratory/Chest: Denies cough or dyspnea Gastrointestinal Gastrointestinal: Denies abdominal pain, diarrhea, nausea or vomiting Genitourinary Genitourinary ED: Denies dysuria or hematuria Musculoskeletal Musculoskeletal: Denies back pain or neck pain Integumentary Denies abscess or rash Neurologic Neurologic: Denies headache(s), paresthesias or weakness Psychiatric Psychiatric: Denies anxiety or suicidal thoughts EXAM Physical Exam Const Vital Signs: 10/02/24 10:56 10/02/24 10:59 10/02/24 11:56 Temperature 98 F 98.7 F Temperature Source Temporal Oral Pulse Rate 70 70 Respiratory Rate 14 18 Respiratory Effort Normal Respiratory Depth Normal Respiratory Pattern Normal Blood Pressure 115/82 H 107/72 Blood Pressure Mean 93 83 Pulse Ox 98 93 Oxygen Delivery Method Room Air Room Air Room Air Positive well nourished and well developed General Appearance ED: well developed and NAD HEENT Reports moist mucous membranes HEENT Narrative: There is some mild tenderness in the right forehead in the area of the eyebrow, it is superior to the brim of the orbit which is nontender and without any crepitance and there is no crepitance or depression in the area of tenderness. He has dense right periorbital ecchymosis. There is no midface tenderness or instability including the zygomatic arches which are nontender. There is no periorbital ecchymosis on the left. There is no Burgess sign or hemotympanum or CSF otorhinorrhea. No other signs of head trauma and there is no laceration. normocephalic Eyes PERRL and EOMs intact bilaterally Neck full ROM and supple Resp normal respiratory effort and clear to auscultation bilaterally Cardio regular rate and regular rhythm GI non-tender and non-distended Auscultation: normoactive bowel sounds Palpation: soft Back/Spine no CVA tenderness General Back: other FROM Extremity normal to inspection General Extremety ED: Negative for edema, pulses abnormal or tenderness General Extremity: Negative for edema or pulses abnormal Neuro oriented x3, CN's II-XII intact bilaterally and no sensory deficits noted Sensorium / Orientation: awake and alert Motor Exam: strength 5/5 throughout Psych mental status grossly normal and thought process normal Skin no rashes or lesions noted and no wounds MDM MDM MDM Narrative Medical decision making narrative: Given his prior history I obtained a CT of the head, also in order to evaluate for basilar skull fracture, which I am less suspicious for. My interpretation to head CT shows no acute hemorrhage. Radiology was in agreement. Given all of this likely that he had a contusion/hematoma right forehead that over the course of the overnight. Drained caudally with gravity to the right periorbital area. Reassured, supportive care advised, this will likely resolve with time. Radiography Diagnostic Testing: Clinical Impression(s) from Imaging Studies Brain CT 10/02/24 11:25 IMPRESSION: 1. Hypoattenuating areas along both cerebral convexities most likely residual from previous subdural hemorrhage. No signs of acute subdural hemorrhage. 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 2. Bilateral craniotomy defects. 3. Mild right frontal scalp hematoma. 4. Age-related central white matter microvascular ischemic changes. Reading Location: [facility] Discharge Plan Triage Chief Complaint: Head Injury ED Provider: Terry Hernandez Dx/Rx/DC Orders Clinical Impression: Traumatic hematoma of face, Closed head injury without concussion, Fall from slip, trip, or stumble Instructions: Black Eye, ED Facial Contusion Prescriptions: No Action omeprazole 20 mg capsule,delayed release(DR/EC) 20 mg PO ONCE levothyroxine 50 mcg capsule 75 mcg PO QDAY pantoprazole 40 mg tablet,delayed release (DR/EC) 40 mg PO DAILY multivitamin [Daily Multi-Vitamin] Tablet 1 tab PO DAILY metoprolol tartrate 25 mg tablet 25 mg PO BID Qty: 180 3RF tamsulosin 0.4 mg capsule 0.4 mg PO DAILY atorvastatin 40 mg tablet 40 mg PO DAILY Qty: 90 3RF Primary Care Provider: Henry Collado Referrals: Henry Collado DO [Primary Care Provider] - As Needed Print Language: Armenian Disposition Disposition: Home, Self Care
[2024-10-02 11:56] VITALS: BP 107/72; PULSE 70; RESP 18; TEMP 37.1; O2SAT 93
[2024-10-02 13:22] VITALS: BP 120/82; PULSE 71; RESP 16; TEMP 36.1; O2SAT 93
== END 2024-10-02 13:30 | disposition home or self-care (01) ==
PROVIDERS: Emergency Provider Emergency Medicine; PCP Family Medicine; Referring Provider Emergency Medicine; Visit Provider Emergency Medicine
DX: S00.83XA Contusion of other part of head, initial encounter (principal); I48.0 Paroxysmal atrial fibrillation; E78.5 Hyperlipidemia, unspecified; Z87.891 Personal history of nicotine dependence; S09.90XA Unspecified injury of head, initial encounter; Z95.0 Presence of cardiac pacemaker; E03.9 Hypothyroidism, unspecified; Z79.890 Hormone replacement therapy; Z79.899 Other long term (current) drug therapy; Z95.2 Presence of prosthetic heart valve; Z90.49 Acquired absence of other specified parts of digestive tract
CPT/HCPCS: 70450; 99282

== ENCOUNTER → 2025-02-05 | Outpatient (CLI) | payer MEDICARE, OTHER, SELFPAY ==
[2025-02-05 12:44] LABS: Absolute Lymphocyte Count 0.75 X10^3/uL (0.83-4.51); Absolute Neutrophil Count 3.2 X10^3/uL (2.0-7.7); Basophil# 0.03 X10^3/uL; Basophil% 0.6 % (0-1); Eosinophil# 0.09 X10^3/uL; Eosinophils% 1.9 % (0-5); Hematocrit 42.5 % (40-54); Hemoglobin 14.1 g/dL (13.0-16.5); Lymphocyte # 0.75 X10^3/ul (0.83-4.51); Mean Corp Hgb Conc 33.2 g/dL (32-36); Mean Corpuscular Hgb 32.6 pg (27.0-32.0); Mean Corpuscular Volume 98.4 fL (80-94); Mean Platelet Vol. 11.4 fl (6.2-12.0); Monocyte# 0.57 X10^3/uL; Monocyte% 12.2 % (0-10); NRBC Flagged by Analyzer 0 % (0-5); Neutrophil # 3.19 X10^3/uL (2.7-7.7); Platelet Count 109 K/mm3 (150-450); RBC Distribution Width CV 13.1 % (11.6-14.6); Red Blood Count 4.32 M/mm3 (4.6-6.2); White Blood Count 4.7 K/mm3 (4.4-11.0)
[2025-02-05 13:11] LABS: Anion Gap 12 (5-15); BUN 26 mg/dL (4-19); BUN/Creat Ratio 14.9 RATIO (10-20); Carbon Dioxide 17.9 mmol/L (21.0-32.0); Chloride 107 mmol/L (98-108); Creatinine, Serum 1.73 mg/dL (0.70-1.20); EST Glomerular Filtration Rate 38 (>60); Glucose 151 mg/dL (70-99); Potassium 4.3 mmol/L (3.3-5.1); Sodium Level 137 mmol/L (133-145)
== END | disposition home or self-care (01) ==
LOC: BFHLAB 08:53
PROVIDERS: PCP Family Medicine; Visit Provider Family Medicine
DX: D72.819 Decreased white blood cell count, unspecified (principal)
CPT/HCPCS: 36415; 80048; 85025

== ENCOUNTER → 2025-03-26 | Outpatient (CLI) | payer MEDICARE, OTHER, SELFPAY ==
[2025-03-26 10:25] LABS: Cholesterol 82 mg/dL (<=200); Low Density Lipoprotein Calc. 12 mg/dL; Triglycerides 136 mg/dL; Very Low Density Lipoprotein 27 mg/dL (5-40); cholesterol:hdl ratio screen 1.93
[2025-03-26 10:26] LABS: AST(SGOT) 23 U/L (<=37); Alanine Aminotransfer ALT/SGPT 15 U/L (<=46); Albumin, Serum 3.9 g/dL (3.4-4.8); Alkaline Phosphatase 110 U/L (40-129); Bilirubin, Direct 0.57 mg/dL (0.00-0.30); Globulin 3.6 g/dL (2.2-4.2)
== END | disposition home or self-care (01) ==
LOC: LAB 09:30
PROVIDERS: PCP Family Medicine; Referring Provider Physician Assistant Medical; Visit Provider Physician Assistant Medical
DX: E78.5 Hyperlipidemia, unspecified (principal)
CPT/HCPCS: 36415; 80061; 80076

== ENCOUNTER → 2025-08-09 | Outpatient (CLI) | payer MEDICARE, OTHER, SELFPAY ==
[2025-08-09 12:13] LABS: Hematocrit 42.2 % (40-54); Hemoglobin 14.2 g/dL (13.0-16.5); Immature Granulocytes Count 0.080 X10^3/uL (0.0-0.0); Mean Corp Hgb Conc 33.6 g/dL (32-36); Mean Corpuscular Volume 98.6 fL (80-94); Mean Platelet Vol. 11.3 fl (6.2-12.0); NRBC Flagged by Analyzer 0 % (0-5); Platelet Count 122 K/mm3 (150-450); RBC Distribution Width CV 12.8 % (11.6-14.6); RBC Distribution Width SD 46.5 fl (35.1-43.9); Red Blood Count 4.28 M/mm3 (4.6-6.2); White Blood Count 5.2 K/mm3 (4.4-11.0)
[2025-08-09 12:36] LABS: AST(SGOT) 20 U/L (<=37); Alanine Aminotransfer ALT/SGPT 16 U/L (<=46); Albumin, Serum 3.9 g/dL (3.4-4.8); Alkaline Phosphatase 112 U/L (40-129); Anion Gap 9 (7-18); BUN 19 mg/dL (4-19); BUN/Creat Ratio 11.9 RATIO (10-20); Calcium,Total 9.1 mg/dL (7.6-11.0); Carbon Dioxide 23.9 mmol/L (20.0-29.0); Chloride 107 mmol/L (96-106); Globulin 3.0 g/dL (2.2-4.2); Glucose 101 mg/dL (70-99); Potassium 4.6 mmol/L (3.5-5.1)
== END | disposition home or self-care (01) ==
LOC: BFHLAB 09:04
PROVIDERS: PCP Family Medicine; Visit Provider Family Medicine
DX: N18.32 Chronic kidney disease, stage 3b (principal); E80.6 Other disorders of bilirubin metabolism; D69.6 Thrombocytopenia, unspecified; E03.9 Hypothyroidism, unspecified
CPT/HCPCS: 36415; 80053; 84443; 85025